=== PATIENT | male | born 1985 | race Caucasian/White ===

== ENCOUNTER 2020-05-20 06:50 | Emergency (ER) | payer SELFPAY ==
[2020-05-20 06:59] VITALS: BP 153/126; PULSE 96; RESP 18; TEMP 36.6; O2SAT 100; BMI 42.0
--- NOTE | 2020-05-20 07:14 | W.ED.ABDPA2 ---
HPI - Abdominal Pain General: Chief Complaint: Abdominal Pain Stated Complaint: ABD PAIN Time Seen by Provider: 05/20/20 07:00 History of Present Illness: HPI narrative: 35 yo male resents with right upper quadrant pain that began early this morning. He has had this intermittently in the past but has not lasted this long or been this intense before. He age of good he last night. He has had bilious vomiting all morning. This all began around 4 AM he relates the pain is being intense worse with a deep breath radiating around into his back he also has diarrhea with it he denies any hematochezia melena hematemesis or coffee-ground emesis. He states in the past it actually gets better when he vomits but it is not been improving this time. He denies any fever denies any flulike symptoms no cough or shortness of breath. MD elicited complaint: abdominal pain Onset (ago): hour(s) Pain Consistency: constant Location: RUQ Severity: severe Quality: cramping Radiation: RUQ Migration to: other (Back) Exacerbating factors: eating Relieving factors: nothing Associated Symptoms: Reports anorexia, bloating, change in bowel habits, change in stool character, GI cramping, diarrhea, nausea, poor appetite and vomiting; Denies chills, coffee ground emesis, constipation, dyspepsia, dysuria, excessive flatus, fever(s), heartburn, hematochezia, hematuria, hematemesis, fecal incontinence, loose stools, melena and syncope Review of Systems Const: Denies: fever(s) or chills ENMT: Denies: throat pain, ear or mastoid pain, nasal discharge or nasal congestion Card: Denies: syncope Resp: Denies: dyspnea, productive cough or non-productive cough GI: Reports: nausea, vomiting, diarrhea, bloating, GI cramping, change in bowel habits and change in stool character; Denies: hematemesis, coffee ground emesis, heartburn, constipation, excessive flatus, fecal incontinence, hematochezia or melena : Denies: dysuria or hematuria Skin/Breast: Denies: rash or pruritus [facility] ED PFSH: Surgical History (Updated 05/20/20 @ 07:46 by Cesar Del Angel DO) History of appendectomy Physical Exam Const: COMMON NORMALS: no acute distress GENERAL APPEARANCE: cooperative and comfortable ORIENTATION/CONSCIOUSNESS: Yes awake, Yes oriented to person, Yes oriented to place and Yes oriented to time HENMT: COMMON NORMALS: normocephalic, atraumatic and hearing grossly normal bilaterally HEAD & SCALP: normocephalic and atraumatic Neck/C-Spine: COMMON NORMALS: no JVD Resp: COMMON NORMALS: normal respiratory effort, No retractions, No use of accessory muscles and clear to auscultation bilaterally AUSCULTATION: clear to auscultation bilaterally Cardio: COMMON NORMALS: no JVD, regular rate, regular rhythm and No murmurs present (Cardio) RATE: regular rate RHYTHM: regular rhythm GI: COMMON NORMALS: Soft to palpation and No hepatosplenomegaly present AUSCULTATION: Yes normoactive bowel sounds PALPATION: Yes Soft to palpation, Yes Tenderness to palpation present (GI) (Positive Long sign) Details: RUQ, No Guarding due to palpation present (GI) and Yes No hepatosplenomegaly present Extremity: COMMON NORMALS: normal to inspection, capillary refill normal, no clubbing, cyanosis or edema, no calf tenderness and no pedal edema Neuro: SENSORIUM/ORIENTATION: Yes oriented to person, Yes oriented to place and Yes oriented to time Skin: COMMON NORMALS: no rashes or lesions noted GENERAL SKIN EXAM: no rashes or lesions noted Course Vital Signs: Vital signs: Vital Signs Temperature 97.9 F 05/20/20 06:59 Pulse Rate 78 05/20/20 11:39 Respiratory Rate 15 05/20/20 11:39 Blood Pressure 140/90 05/20/20 11:39 Pulse Oximetry 97 05/20/20 11:39 MDM - Abdominal Pain Lab Data: Labs: Lab Results 05/20/20 05/20/20 05/20/20 Range/Units 07:32 07:38 07:38 WBC 7.7 (4.0-10.0) 10^3/ uL RBC 5.28 (4.1-5.3) 10^6/u L Hgb 15.3 (11.7-16.6) g/dL Hct 46.4 (42.0-52.0) % MCV 87.9 (80-94) fL MCH 29.0 (28.0-34.0) pg MCHC 33.0 (30.0-36.0) g/dL RDW 12.9 (12.1-15.1) % Plt Count 254 (130-400) 10^3/c mm MPV 10.2 (7.4-10.4) fL Neut % (Auto) 64.2 % Lymph % (Auto) 24.2 % [place] % (Auto) 8.0 % Eos % (Auto) 2.6 % Baso % (Auto) 0.9 % Neut # (Auto) 4.97 (1.8-7.7) 10^3/u L Lymph # (Auto) 1.9 (0.8-4.8) 10^3/u L [place] # (Auto) 0.6 (0.2-0.9) 10^3/u L Eos # (Auto) 0.2 (0.0-0.8) 10^3/u L Baso # (Auto) 0.1 (0.0-0.1) 10^3/u L Nucleated RBC % (a uto) 0 % Nucleated RBCs # 0.0 /100WBC Sodium (136-145) mmol/L Potassium (3.5-5.1) mmol/L Chloride (98-107) mmol/L Carbon Dioxide (22-29) mmol/L Anion Gap (5-19) BUN (6-20) mg/dL Creatinine (0.7-1.2) mg/dL GFR Calculation (90-130) mL/min Glucose (65-115) mg/dL Calculated Osmolal ity (285-295) mOsm/k g Lactic Acid 1.0 (0.5-2.2) mmol/L Calcium (8.5-10.5) mg/dL Total Bilirubin (0.15-1.2) mg/dL AST (0-40) U/L ALT (0-41) U/L Alkaline Phosphata se (40-130) IU/L Total Protein (6.6-8.7) g/dL Albumin (3.5-5.2) g/dL Globulin (1.3-4.6) g/dL Lipase (13-60) U/L Urine Color Straw (Yellow) Urine Appearance Clear (CLEAR) Urine pH 5 (5-7) Ur Specific Gravit y 1.020 (1.005-1.030) Urine Protein Neg (Negative) Urine Glucose (UA) Norm (Normal) Urine Ketones Negative (Negative) Urine Blood Neg (Negative) Urine Nitrate Negative (Negative) Urine Bilirubin Neg (Negative) Urine Urobilinogen Norm (Negative) mg/dL Ur Leukocyte Toshia ase Negative (Negative) 05/20/20 Range/Units 07:38 WBC (4.0-10.0) 10^3/ uL RBC (4.1-5.3) 10^6/u L Hgb (11.7-16.6) g/dL Hct (42.0-52.0) % MCV (80-94) fL MCH (28.0-34.0) pg MCHC (30.0-36.0) g/dL RDW (12.1-15.1) % Plt Count (130-400) 10^3/c mm MPV (7.4-10.4) fL Neut % (Auto) % Lymph % (Auto) % [place] % (Auto) % Eos % (Auto) % Baso % (Auto) % Neut # (Auto) (1.8-7.7) 10^3/u L Lymph # (Auto) (0.8-4.8) 10^3/u L [place] # (Auto) (0.2-0.9) 10^3/u L Eos # (Auto) (0.0-0.8) 10^3/u L Baso # (Auto) (0.0-0.1) 10^3/u L Nucleated RBC % (a uto) % Nucleated RBCs # /100WBC Sodium 135 L (136-145) mmol/L Potassium 4.3 (3.5-5.1) mmol/L Chloride 100 (98-107) mmol/L Carbon Dioxide 27 (22-29) mmol/L Anion Gap 12.3 (5-19) BUN 18 (6-20) mg/dL Creatinine 0.7 (0.7-1.2) mg/dL GFR Calculation 129.9 (90-130) mL/min Glucose 106 (65-115) mg/dL Calculated Osmolal ity 282 L (285-295) mOsm/k g Lactic Acid (0.5-2.2) mmol/L Calcium 9.4 (8.5-10.5) mg/dL Total Bilirubin 0.2 (0.15-1.2) mg/dL AST 23 (0-40) U/L ALT 33 (0-41) U/L Alkaline Phosphata se 89 (40-130) IU/L Total Protein 7.6 (6.6-8.7) g/dL Albumin 4.6 (3.5-5.2) g/dL Globulin 3.0 (1.3-4.6) g/dL Lipase 24 (13-60) U/L Urine Color (Yellow) Urine Appearance (CLEAR) Urine pH (5-7) Ur Specific Gravit y (1.005-1.030) Urine Protein (Negative) Urine Glucose (UA) (Normal) Urine Ketones (Negative) Urine Blood (Negative) Urine Nitrate (Negative) Urine Bilirubin (Negative) Urine Urobilinogen (Negative) mg/dL Ur Leukocyte Toshia ase (Negative) Discharge Plan Discharge Clinical Impression: Cholelithiasis Condition: Stable Prescriptions: New hydrocodone-acetaminophen 5-325 mg tablet 1 tab PO Q6H PRN (Reason: pain) Qty: 20 RF: 0 Zofran 4 mg tablet 4 mg PO Q6H PRN (Reason: nausea and vomiting) Qty: 20 RF: 0 Discharge Orders: Discharge Order (Routine); Ordered 05/20/20 Ordered By: Cesar Del Angel Discharge Diet: Clear Liquid Patient Instructions: Cholelithiasis, Clear Liquid Diet (ED) Activity Restrictions/Additional Instructions: Case management will call to get an appointment with general surgery to discuss your gallbladder. Coding Level of Care Code ED Safety Deposit Clerk for Elizabeth Fwd Exam Comprehensive
--- NOTE | 2020-05-20 07:15 | CT_ITS ---
WS: [id number] CT ABDOMEN AND PELVIS WITH CONTRAST HISTORY: Abdominal pain. Prior appendectomy. TECHNIQUE: Imaging performed of the abdomen and pelvis with IV contrast. Single phase imaging of the abdomen. Coronal and sagittal reformats are submitted. All CT scans at [facility] use at least one of these dose optimization techniques: automated exposure control; mA and/or kV adjustment per patient size (includes targeted exams where dose is matched to clinical indication); or iterativ e reconstruction. IV CONTRAST: Omnipaque 300; 95 mL IV. Oral contrast: No DLP: 1979.01 mGy.cm COMPARISON: None available. Lower thorax: Mild dependent changes and a few groundglass subtle areas of attenuation at the lung ba ses. Heart is normal size. No hiatal hernia. Liver/biliary system: Liver is slightly enlarged. No bile duct dilatation. Gallbladder: Normally distended gallbladder. Mild hyperemia of the gallbladder wall without thickenin g. Suspicious for stone at the gallbladder neck. Pancreas: Normal. Spleen: Normal. Adrenal glands: Normal. Right kidney: Normal. Left kidney: Normal. Aorta: Normal. Lymphadenopathy: None. Free fluid: None. GI tract: Surgical clips along the ascending colon. There is no obstruction. The appendix has been rodríguez rgically removed. Abdominal wall: Unremarkable abdominal wall. No hernia. Pelvis: Mild enlargement and lobulation of the prostate. Urinary bladder is well distended. No free f luid or adenopathy. Inguinal canals are patent bilaterally containing fat only. Bones: Unremarkable. CT/CT abdomen pelvis w con* [id number] IMPRESSION: 1. Early changes of mild acute cholecystitis are suspected. Stone at the gallb ladder neck may be present. 2. No hydrops or gallbladder wall thickening. 3. Prior appendectomy.
--- NOTE | 2020-05-20 07:15 | XR_ITS ---
WS: [id number] Exam: XR chest 1V portable [id number] Date/Time of Exam: 05/20/2020 7:18 AM Reason For Exam: dyspnea/cough Findings: The lungs are clear and fully expanded. Costophrenic angles are sharp. No infiltrates. Bronchovascula r relief appears normal. Cardiac silhouette is unremarkable. Bony elements are intact. XR/XR chest 1V portable [id number] IMPRESSION: Unremarkable chest radiograph.
--- NOTE | 2020-05-20 07:15 | ECG_ITS ---
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 Measurements Intervals [place] Rate: 81 P: 34 MA: 146 QRS: 15 QRSD: 116 T: 34 QT: 341 QTc: 398 Interpretive Statements SINUS RHYTHM MODERATE INTRAVENTRICULAR CONDUCTION DELAY [110+ ms QRS DURATION] No previous ECG available for comparison Electronically Signed On 05-20-2020 18:23:56 [employer] RADIO OPERATOR by Guido Wong M.D. [id number]
--- NOTE | 2020-05-20 07:28 | US_ITS ---
WS: [id number] RIGHT UPPER QUADRANT ULTRASOUND HISTORY: Abdominal and RIGHT upper quadrant pain. COMPARISON: 05/20/2020 Liver: 17.5 cm in length. Moderately enlarged liver. No mass or bile duct dilatation. Gallbladder: Normal size gallbladder. Mild gallbladder wall thickening. Gallbladder wall measures 3.8 mm. No pericholecystic fluid. No stones are identified. CBD: 0.3 cm Pancreas: Poorly visualized pancreas. Right kidney: 12.2 cm in length. Normal size and echogenicity. No hydronephrosis or mass. Aorta and IVC: Unremarkable abdominal aorta and IVC. No ascites. US/US gall bladder [id number] IMPRESSION: 1. No cholelithiasis identified. 2. Mild diffuse gallbladder wall thickening without pericholecystic fluid. Ear ly changes of acalculous cholecystitis versus gallbladder wall thickening relat ed to hepatocellular disease. 3. Mild hepatomegaly.
[2020-05-20] MEDS: sodium chloride 0.9% 1,000 ML 999 ML IV (07:40)
[2020-05-20] MEDS: ondansetron 2 mg/ML SDV 2 mL 4 MG IVP (07:40)
[2020-05-20 07:46] LABS: Basophils # 0.1 10^3/uL (0.0-0.1); Basophils % 0.9 %; Eosinophils # 0.2 10^3/uL (0.0-0.8); Eosinophils % 2.6 %; Hematocrit 46.4 % (42.0-52.0); Hemoglobin 15.3 g/dL (11.7-16.6); Lymphocytes # 1.9 10^3/uL (0.8-4.8); Lymphocytes % 24.2 %; Mean Corpuscular Volume 87.9 fL (80-94); Mean Platelet Volume 10.2 fL (7.4-10.4); Monocytes # 0.6 10^3/uL (0.2-0.9); Neutrophils # 4.97 10^3/uL (1.8-7.7); Neutrophils % 64.2 %; Nucleated Red Blood Cells % 0 %; Platelet Count 254 10^3/cmm (130-400); Red Blood Count 5.28 10^6/uL (4.1-5.3); Red Cell Distribution Width 12.9 % (12.1-15.1); White Blood Count 7.7 10^3/uL (4.0-10.0)
[2020-05-20 07:52] LABS: Add Urine Microscopic? NO
[2020-05-20] MEDS: iohexol 300 mg/mL 100 mL Btl IV (07:54)
[2020-05-20 07:55] VITALS: RESP 15
[2020-05-20] MEDS: morphine 4 mg/mL SDV 1 mL IVP (07:55)
[2020-05-20 08:06] LABS: Alanine Aminotransferase 33 U/L (0-41); Albumin Level 4.6 g/dL (3.5-5.2); Alkaline Phosphatase 89 IU/L (40-130); Anion Gap 12.3 (5-19); Aspartate Amino Transferase 23 U/L (0-40); Blood Urea Nitrogen 18 mg/dL (6-20); Calcium 9.4 mg/dL (8.5-10.5); Carbon Dioxide 27 mmol/L (22-29); Chloride 100 mmol/L (98-107); Glomerular Filtration Rate 129.9 mL/min (90-130); Glucose 106 mg/dL (65-115); Lipase 24 U/L (13-60); Osmolality Calculated 282 mOsm/kg (285-295); Potassium 4.3 mmol/L (3.5-5.1); Sodium 135 mmol/L (136-145); Total Bilirubin 0.2 mg/dL (0.15-1.2); Total Protein 7.6 g/dL (6.6-8.7)
[2020-05-20 08:15] LABS: Urine Appearance Clear (CLEAR); Urine Color Straw (Yellow); pH Urine 5 (5-7)
[2020-05-20 08:16] LABS: Bilirubin Urine Neg (Negative); Blood Urine Neg (Negative); Glucose Urine UA Norm (Normal); Ketones Urine Negative (Negative); Leukocyte Esterase Urine Negative (Negative); Nitrate Urine Negative (Negative); Protein Urine Neg (Negative); Urobilinogen Urine Norm (Negative)
[2020-05-20 11:39] VITALS: BP 140/90; PULSE 78; RESP 15; O2SAT 97
--- NOTE | 2020-05-20 12:13 | DCPLANNER ---
television station manager was asked to schedule a follow up appointment for patient with general surgery. television station manager emailed Eleanor at [facility]. Patients information will be printed and reviewed. Clinic will call patient with appointment information.
--- NOTE | 2020-05-21 11:41 | DCPLANNER ---
Patient has a follow up appointment scheduled for Wednesday, May 22, 2020 at 3:[address] Alfaro. Clinic will call patient with appointment information.
--- NOTE | 2020-06-06 12:45 | DCPLANNER ---
Patient had a follow up appointment scheduled for 05.22.20 with general surgery - patient did attend appointment.
== END 2020-05-20 11:47 ==
PROVIDERS: Emergency Provider Family Medicine
DX: K80.20 Calculus of gallbladder without cholecystitis without obstruction (principal)
CPT/HCPCS: 12345; 71045; 74177; 76705; 80053; 81003; 83605; 83690; 85025; 93005; 96361; 96374; 96375; 99283; J2270; J2405; J7030; Q9967

== ENCOUNTER 2020-05-27 13:34 | Emergency (ER) | payer SELFPAY ==
[2020-05-27 13:55] VITALS: BP 128/78; PULSE 102; RESP 14; TEMP 36.7; O2SAT 98; BMI 41.3
[2020-05-27 15:10] LABS: Basophils # 0.1 10^3/uL (0.0-0.1); Basophils % 0.7 %; Eosinophils # 0.2 10^3/uL (0.0-0.8); Eosinophils % 2.1 %; Hematocrit 44.5 % (42.0-52.0); Hemoglobin 14.5 g/dL (11.7-16.6); Lymphocytes # 2.7 10^3/uL (0.8-4.8); Lymphocytes % 26.1 %; Mean Corpuscular HGB Conc 32.6 g/dL (30.0-36.0); Mean Corpuscular Hemoglobin 29.1 pg (28.0-34.0); Mean Corpuscular Volume 89.2 fL (80-94); Mean Platelet Volume 10.1 fL (7.4-10.4); Monocytes # 0.8 10^3/uL (0.2-0.9); Monocytes % 7.7 %; Neutrophils # 6.48 10^3/uL (1.8-7.7); Neutrophils % 62.2 %; Nucleated Red Blood Cells % 0 %; Platelet Count 227 10^3/cmm (130-400); Red Blood Count 4.99 10^6/uL (4.1-5.3); Red Cell Distribution Width 12.8 % (12.1-15.1); White Blood Count 10.4 10^3/uL (4.0-10.0)
[2020-05-27 15:29] LABS: Alanine Aminotransferase 30 U/L (0-41); Albumin Level 4.5 g/dL (3.5-5.2); Alkaline Phosphatase 91 IU/L (40-130); Aspartate Amino Transferase 19 U/L (0-40); Blood Urea Nitrogen 15 mg/dL (6-20); Calcium 8.9 mg/dL (8.5-10.5); Carbon Dioxide 31 mmol/L (22-29); Chloride 103 mmol/L (98-107); Globulin 2.7 g/dL (1.3-4.6); Glomerular Filtration Rate 129.9 mL/min (90-130); Glucose 86 mg/dL (65-115); Lipase 19 U/L (13-60); Osmolality Calculated 294 mOsm/kg (285-295); Sodium 142 mmol/L (136-145); Total Bilirubin 0.3 mg/dL (0.15-1.2); Total Protein 7.2 g/dL (6.6-8.7)
[2020-05-27 15:36] LABS: Anion Gap 12.5 (5-19); Potassium 4.5 mmol/L (3.5-5.1)
[2020-05-27] MEDS: sodium chloride 0.9% 1,000 ML 999 ML IV (15:46)
[2020-05-27 15:47] VITALS: BP 162/102; PULSE 83; RESP 16; O2SAT 98
[2020-05-27 15:48] VITALS: RESP 18; O2SAT 98
[2020-05-27] MEDS: ondansetron 2 mg/ML SDV 2 mL 4 MG IVP (15:48)
[2020-05-27] MEDS: morphine 4 mg/mL SDV 1 mL IVP (15:48)
--- NOTE | 2020-05-27 16:02 | W.ED.ABDPA2 ---
HPI - Abdominal Pain General: Chief Complaint: Abdominal Pain Stated Complaint: ABD PAIN Time Seen by Provider: 05/27/20 14:57 History of Present Illness: HPI narrative: 35-year-old male who was seen last week for right upper quadrant abdominal pain we worked him a look like he did have biliary colic and referred him over to surgery. He did see Dr. Cruz and he has a pending HIDA scan. Unfortunately he is not able to get that done yet it scheduled for June 06 in the meantime he relates that he has had 4 episodes prior to today of what sounds like biliary colic including at times some vomiting. However when I talked to him he has eaten some foods that have essentially been trigger foods including a Tina cheese steak sandwich and some spaghetti with sauce on it. After each of these episodes he has severe biliary colic-like cramping pain that resolves after a few hours he has had some episodes to the point where he caused vomiting and incapacitating right upper quadrant abdominal pain. He is not had any fever sweats or chills with this. MD elicited complaint: abdominal pain Pertinent past history: other (Biliary colic) Onset (ago): week(s) Location: RUQ Severity: severe Quality: cramping and stabbing Radiation: back Migration to: epigastric Exacerbating factors: eating ([place] foods, tomato based products) Relieving factors: nothing Associated Symptoms: Reports anorexia, bloating, GI cramping, nausea, poor appetite and vomiting; Denies change in bowel habits, change in stool character, chills, coffee ground emesis, constipation, diarrhea, dyspepsia, dysuria, excessive flatus, fever(s), heartburn, hematochezia, hematuria, hematemesis, fecal incontinence, loose stools, melena and syncope Review of Systems Const: Denies: fever(s) or chills ENMT: Denies: throat pain, ear or mastoid pain, nasal discharge or nasal congestion Card: Denies: syncope Resp: Denies: dyspnea, productive cough or non-productive cough GI: Reports: nausea, vomiting, bloating and GI cramping; Denies: hematemesis, coffee ground emesis, heartburn, diarrhea, constipation, excessive flatus, fecal incontinence, change in bowel habits, change in stool character, hematochezia or melena : Denies: dysuria or hematuria Skin/Breast: Denies: rash or pruritus PFSH ED PFSH: Surgical History History of appendectomy Physical Exam Const: COMMON NORMALS: no acute distress GENERAL APPEARANCE: cooperative and comfortable ORIENTATION/CONSCIOUSNESS: Yes awake, Yes oriented to person, Yes oriented to place and Yes oriented to time HENMT: COMMON NORMALS: normocephalic, atraumatic and hearing grossly normal bilaterally HEAD & SCALP: normocephalic and atraumatic Eye: COMMON NORMALS: Equal, round and reactive pupils present, EOMs intact bilaterally, conjunctivae normal and no scleral icterus CONJUNCTIVA: Yes conjunctivae normal PUPIL: Yes Equal, round and reactive pupils present Neck/C-Spine: COMMON NORMALS: full ROM, no lymphadenopathy, supple and no JVD Lymph: LYMPHATIC: no lymphadenopathy noted and no lymphedema noted Resp: COMMON NORMALS: normal respiratory effort, No retractions, No use of accessory muscles and clear to auscultation bilaterally AUSCULTATION: clear to auscultation bilaterally Cardio: COMMON NORMALS: no JVD, regular rate, regular rhythm and No murmurs present (Cardio) RATE: regular rate RHYTHM: regular rhythm GI: COMMON NORMALS: Soft to palpation and No hepatosplenomegaly present PALPATION: Yes Soft to palpation, Yes Tenderness to palpation present (GI) Details: RUQ, No Guarding due to palpation present (GI) and Yes No hepatosplenomegaly present Extremity: COMMON NORMALS: normal to inspection, capillary refill normal, no clubbing, cyanosis or edema, no calf tenderness and no pedal edema Neuro: SENSORIUM/ORIENTATION: Yes oriented to person, Yes oriented to place and Yes oriented to time Skin: COMMON NORMALS: no rashes or lesions noted GENERAL SKIN EXAM: no rashes or lesions noted Course Vital Signs: Vital signs: Vital Signs Temperature 98.1 F 05/27/20 13:55 Pulse Rate 83 05/27/20 15:47 Respiratory Rate 18 05/27/20 15:48 Blood Pressure 162/102 05/27/20 15:47 Pulse Oximetry 98 05/27/20 15:48 MDM - Abdominal Pain MDM Narrative: Medical decision making narrative: By history patient certainly seems to have biliary colic precipitated by dietary indiscretions. Discussed Dr. Alfaro ureter actually already seen the ureters came down and seen the patient discussed with him we are planning discharge with more pain medications and a strict diet to avoid further symptoms he will complete the outpatient work-up as scheduled anticipate scheduling elective cholecystectomy. Lab Data: Labs: Lab Results 05/27/20 05/27/20 Range/Units 14:57 14:57 WBC 10.4 H (4.0-10.0) 10^3/ uL RBC 4.99 (4.1-5.3) 10^6/u L Hgb 14.5 (11.7-16.6) g/dL Hct 44.5 (42.0-52.0) % MCV 89.2 (80-94) fL MCH 29.1 (28.0-34.0) pg MCHC 32.6 (30.0-36.0) g/dL RDW 12.8 (12.1-15.1) % Plt Count 227 (130-400) 10^3/c mm MPV 10.1 (7.4-10.4) fL Neut % (Auto) 62.2 % Lymph % (Auto) 26.1 % [place] % (Auto) 7.7 % Eos % (Auto) 2.1 % Baso % (Auto) 0.7 % Neut # (Auto) 6.48 (1.8-7.7) 10^3/u L Lymph # (Auto) 2.7 (0.8-4.8) 10^3/u L [place] # (Auto) 0.8 (0.2-0.9) 10^3/u L Eos # (Auto) 0.2 (0.0-0.8) 10^3/u L Baso # (Auto) 0.1 (0.0-0.1) 10^3/u L Nucleated RBC % (a uto) 0 % Nucleated RBCs # 0.0 /100WBC Sodium 142 (136-145) mmol/L Potassium 4.5 (3.5-5.1) mmol/L Chloride 103 (98-107) mmol/L Carbon Dioxide 31 H (22-29) mmol/L Anion Gap 12.5 (5-19) BUN 15 (6-20) mg/dL Creatinine 0.7 (0.7-1.2) mg/dL GFR Calculation 129.9 (90-130) mL/min Glucose 86 (65-115) mg/dL Calculated Osmolal ity 294 (285-295) mOsm/k g Calcium 8.9 (8.5-10.5) mg/dL Total Bilirubin 0.3 (0.15-1.2) mg/dL AST 19 (0-40) U/L ALT 30 (0-41) U/L Alkaline Phosphata se 91 (40-130) IU/L Total Protein 7.2 (6.6-8.7) g/dL Albumin 4.5 (3.5-5.2) g/dL Globulin 2.7 (1.3-4.6) g/dL Lipase 19 (13-60) U/L Discharge Plan Discharge Patient Disposition: Home Clinical Impression: Recurrent biliary colic Condition: Stable Prescriptions: New hydrocodone-acetaminophen 5-325 mg tablet 1 tab PO Q6H PRN (Reason: pain) Qty: 15 RF: 0 Zofran 4 mg tablet 4 mg PO Q6H PRN (Reason: nausea and vomiting) Qty: 10 RF: 0 No Action hydrocodone-acetaminophen 5-325 mg tablet 1 tab PO Q6H PRN (Reason: pain) Qty: 20 RF: 0 ondansetron HCl [Zofran] 4 mg tablet 4 mg PO Q6H PRN (Reason: nausea and vomiting) Qty: 20 RF: 0 Discharge Orders: Discharge Order (Routine); Ordered 05/27/20 Ordered By: Cesar Del Angel Discharge Diet: As Directed and Full LIquid Discharge Activity: Increase activity as tolerated Coding Level of Care Code ED Adjunct Latin Professor for Chg Fwd Exam Comprehensive
--- NOTE | 2020-05-27 16:08 | P.PN_ITS ---
Subjective Subjective: Interval history: I had belly pain This is a 35 years old gentleman was seen recently in my office for potential gallbladder disease and biliary colic. Patient was supposed to get a HIDA scan and plan for surgery thereafter in the form of laparoscopic cholecystectomy poss ible open and also to place the patient on liquid protein diet to downsize the volume of his liver which does demonstrate fatty liver. And I did educate the patient about refraining from any unhealthy diet, unfortunately last week and patient went and had [employer] sandwich and he started to have abdominal pain and he came to the ER today for further evaluation. I was contacted by Dr. Del Angel about the patient and I went to examine the patient myself in the ER room #15 and by the time I was there patient was already feeling better. He had his concern about the recurrent episodes that he is getting and the loss of days at work.. Vitals/I&O/Wt Last Vital Signs Temp 98.1 F 05/27/20 13:55 Pulse 83 05/27/20 15:47 Resp 18 05/27/20 15:48 BP 162/102 05/27/20 15:47 Pulse Ox 98 05/27/20 15:48 Weight last 48 hrs Weight 280 lb Physical Exam Narrative: EXAM NARRATIVE: Patient is conscious alert oriented X3 BMI 41.3 Head and neck examination PERRLA no masses no cervical lymphadenopathy no jaundice Abdomen nontender nondistended soft no organomegaly guarding or rigidity/no signs of peritonitis Extremities no cyanosis no clubbing no edema Data : 05/27/20 14:57 05/27/20 14:57 A&P Assessment and plan (1) Recurrent biliary colic: For further evaluating the patient and obtaining history and physical e xamination reviewing the chart in depth. I did explain for the patient about the importance from refraining from unhealthy diet and will try to get the HIDA scan this week if not we will plan to proceed with laparoscopic cholecystectomy possible open yet I did educate the patient about the importance of having him on liquid protein diet for a week to downsize the volume of the liver to facilitate his surgery. I do not see an acute indication at this point for intervention with particularly bigger liver that does increase the chance of conversion to open and that certainly would put the patient at more loss of work days. 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 We will continue coordinating with patient's PCP and Dr. Del Angel I did contact my office to schedule the patient for surgery this coming week Assurance and education All questions have been answered and all concerns have been addressed to patient's satisfaction. Status: Acute Attestations 2 Medical Necessity Statement*: Clinical encounter in the ER Time Spent in Patient Care: 16 - 35 minutes (>than 50% of time spent in counselling and/or direct pt care on unit) . Coding Level of Care Code Acute Fire Equipment Inspector Helper for Elizabeth Fwd Diagnoses Recurrent biliary colic K80.50
[2020-05-27 17:04] VITALS: BP 160/105; PULSE 93; RESP 20; O2SAT 97
[2020-05-27 17:22] LABS: Add Urine Microscopic? NO
[2020-05-27 17:45] LABS: Bilirubin Urine Neg (Negative); Blood Urine Neg (Negative); Glucose Urine UA Norm (Normal); Ketones Urine Negative (Negative); Leukocyte Esterase Urine Negative (Negative); Nitrate Urine Negative (Negative); Protein Urine Neg (Negative); Specific Gravity, Urine 1.015 (1.005-1.030); Urine Appearance Clear (CLEAR); Urine Color Yellow (Yellow); Urobilinogen Urine Norm (Negative); pH Urine 7 (5-7)
== END 2020-05-27 17:06 | disposition home or self-care (01) ==
PROVIDERS: Emergency Medicine; Emergency Provider Family Medicine
DX: K80.50 Calculus of bile duct without cholangitis or cholecystitis without obstruction (principal)
CPT/HCPCS: 12345; 80053; 81003; 83690; 85025; 96361; 96374; 96375; 99282; 99283; J2270; J2405; J7030

== ENCOUNTER 2020-05-29 07:36 | Outpatient (CLI) | payer SELFPAY ==
--- NOTE | 2020-05-29 08:00 | NM_ITS ---
WS: [id number] NUCLEAR MEDICINE HIDA SCAN WITH GALLBLADDER EJECTION FRACTION HISTORY: K80.20 - Calculus of gallbladder without cholecystitis without obstruction COMPARISON: 05/20/2020 TECHNIQUE: The patient was intravenously injected with 7.3 mCi of TC99m Mebrofenin. Immediate imaging over the right upper quadrant was followed by 5 minute image and additional images for a total of 60 minutes. Normal uptake of radiotracer throughout the liver. Activity identified in the gallbladder at 10 minutes and minimally well distended by 60 minutes. Activity in the proximal small bowel was seen by 20 minutes. Good washout of the radiotracer from the liver by 60 minutes. The patient then drank 8 ounces of Ensure Plus. Ejection fraction at 60 minutes was 40%. Normal GB ej ection fraction is 35-75%. Post fatty meal symptoms: None. NM/NM hepatobiliary w phar* [id number] IMPRESSION: 1. Normal HIDA scan. 2. Low normal gallbladder ejection fraction. The gallbladder only mild minimal ly distends with radionuclide. Favor chronic cholecystitis.
== END 2020-05-29 07:37 | disposition home or self-care (01) ==
PROVIDERS: Visit Provider Surgery
DX: K80.20 Calculus of gallbladder without cholecystitis without obstruction (principal); R10.9 Unspecified abdominal pain
CPT/HCPCS: 78227; A9537

== ENCOUNTER 2020-07-19 00:06 | Emergency (ER) | payer SELFPAY ==
[2020-07-19 00:08] VITALS: BP 163/122; PULSE 106; RESP 24; TEMP 36.6; O2SAT 96; BMI 47.0
--- NOTE | 2020-07-19 00:17 | US_ITS ---
WS: [id number] ULTRASOUND ABDOMEN LIMITED CLINICAL INFORMATION: RUQ pain COMPARISON: None. FINDINGS: Liver Size: Normal. Craniocaudal length: 15.1 cm. Echogenicity: Normal. Surface nodularity: None. Mass (size and location): None. Bile ducts Intrahepatic ducts: Normal. Common bile duct diameter: 0.5 cm. Gallbladder Gallstone in the neck of the gallbladder measuring 17 mm Gallstones: Present Gallbladder sludge: None. Gallbladder wall thickening: None. Pericholecystic fluid: None. Sonographic Long sign: Absent. Pancreas Normal as visualized. Right kidney: Normal. Hydronephrosis: None. Size: 11.2 cm x 5.8 cm x 5.9 cm. Abdominal aorta and IVC Visualized portions are normal. Ascites: None. US/US gall bladder [id number] IMPRESSION: 1. Normal liver. 2. Gallstone in the neck of the gallbladder measuring 17 mm. No gallbladder wa ll thickening or pericholecystic fluid. Normal common bile duct. 3. No hydronephrosis in right kidney.
--- NOTE | 2020-07-19 00:19 | W.ED.ABDPA2 ---
HPI - Abdominal Pain General: Chief Complaint: Abdominal Pain Stated Complaint: severe upper abd. pain Time Seen by Provider: 07/19/20 00:16 History of Present Illness: HPI narrative: Patient is a 35-year-old male comes to the ED with abdominal pain and nausea. Patient has a history of biliary colic and is scheduled to have a cholecystectomy on July 23. He says today and around 8 PM he had a glass of milk and his right upper quadrant abdominal pain started and got more more intense over the past couple hours. He rates his pain a 10 out of 10. He says he has nausea but has not vomited. Denies fever, chills, chest pain, bladder or bowel symptoms. Associated Symptoms: Reports nausea; Denies chills, constipation, diarrhea, dysuria, fever(s), hematochezia, hematuria and vomiting Review of Systems Const: Denies: fever(s), chills or fatigue Eyes: Denies: change in vision or eye discomfort ENMT: Denies: throat pain, odynophagia, nasal discharge or nasal congestion Card: Denies: chest pain, palpitations, edema, swelling of feet/ankles, dyspnea on exertion or orthopnea Resp: Denies: dyspnea, productive cough or non-productive cough GI: Reports: abdominal pain (RUQ) and nausea; Denies: vomiting, diarrhea, constipation or hematochezia : Denies: flank pain, difficulty urinating, dysuria or hematuria Musc: Denies: neck pain, back pain or extremity swelling Skin/Breast: Denies: rash or new lesions Neuro: Denies: headache(s), numbness in extremities or weakness in extremities PFS ED PFSH: Surgical History History of appendectomy Physical Exam Const: COMMON NORMALS: patient oriented x3 and alert GENERAL APPEARANCE: cooperative and in distress (Patient appears in pain and is crying.) NUTRITIONAL APPEARANCE: obese HENMT: COMMON NORMALS: normocephalic HEAD & SCALP: normocephalic MOUTH: Normal oral and palatal mucosa present THROAT: posterior oropharynx normal and uvula midline Eye: COMMON NORMALS: Equal, round and reactive pupils present PUPIL: Yes Equal, round and reactive pupils present Neck/C-Spine: COMMON NORMALS: supple GENERAL: Yes normal visual inspection Resp: COMMON NORMALS: normal respiratory effort, No retractions, No use of accessory muscles and clear to auscultation bilaterally EFFORT & INSPECTION: Yes able to speak in complete sentences and Yes tachypneic AUSCULTATION: clear to auscultation bilaterally Cardio: COMMON NORMALS: regular rhythm, S1 normal heart sound present, S2 normal heart sound present, No gallops present (Cardio), No clicks present (Cardio), No murmurs present (Cardio) and Peripheral pulses 2+ throughout RATE: tachycardic (105 bpm) RHYTHM: regular rhythm HEART SOUNDS: S1 normal heart sound present and S2 normal heart sound present PERIPHERAL PULSES: Peripheral pulses 2+ throughout GI: COMMON NORMALS: Normal to inspection, nondistended, normoactive bowel sounds present, Soft to palpation and no masses INSPECTION: Yes central obesity PALPATION: Yes Soft to palpation and Yes Tenderness to palpation present (GI) Details: RUQ (Moderate to severe tenderness. Positive Long sign) : COMMON NORMALS: Yes no CVA tenderness BLADDER/KIDNEY EXAM: Yes no CVA tenderness Back/Pelvis: COMMON NORMALS: no CVA tenderness Extremity: COMMON NORMALS: normal to inspection and no pedal edema Neuro: COMMON NORMALS: patient oriented x3 SENSORIUM/ORIENTATION: Yes alert GAIT: Yes Normal gait present Skin: GENERAL SKIN EXAM: dry skin Course Reevaluation(s): Reevaluation #1: After IV morphine and then a dose of Dilaudid patient's pain was finally able to get under control. He now rates his pain below a 3 out of 10. Time: 02:40 Vital Signs: Vital signs: Vital Signs Temperature 97.8 F 07/19/20 00:08 Pulse Rate 67 07/19/20 03:08 Respiratory Rate 18 07/19/20 03:08 Blood Pressure 129/78 07/19/20 03:08 Pulse Oximetry 98 07/19/20 03:08 MDM - Abdominal Pain MDM Narrative: Medical decision making narrative: Patient is a 35-year-old male comes to the ED with acute biliary colic pain. Patient has had these symptoms previously and has been seen here in the ED multiple times in the last 2 months for it. He has a scheduled appointment to get his gallbladder removed on July [address] Jones. Patient had right upper quadrant tenderness upon exam. He was crying in pain during history and physical exam. white blood cell count 10.6 and the rest of CBC and CMP and lipase were unremarkable. Lactic 1.4. Ultrasound gallbladder showed a 2 cm stone in the neck of the gallbladder but gallbladder wall was normal and common bile duct normal. Patient's pain and nausea was well controlled with IV pain meds and Zofran. Vital signs once pain was controlled 129/78, pulse 67, respirations 18, temp 97.8 and O2 sat 98% on room air. He was discharged home with prescription for Reglan and Lomax 7.5/325 tablets. He was instructed on having a clear liquid diet then slowly advancing as tolerated. Follow-up with surgeon at scheduled appointment on July 23 to get gallbladder removed. Return to ED precautions given. Patient understood agree with plan. Lab Data: Attestation: I reviewed the patient's lab results. Labs: Lab Results 07/19/20 07/19/20 07/19/20 Range/Units 00:30 00:30 00:30 WBC 10.6 H (4.0-10.0) 10^3/ uL RBC 5.34 H (4.1-5.3) 10^6/u L Hgb 15.5 (11.7-16.6) g/dL Hct 47.0 (42.0-52.0) % MCV 88.0 (80-94) fL MCH 29.0 (28.0-34.0) pg MCHC 33.0 (30.0-36.0) g/dL RDW 13.0 (12.1-15.1) % Plt Count 299 (130-400) 10^3/c mm MPV 10.5 H (7.4-10.4) fL Neut % (Auto) 50.5 % Lymph % (Auto) 38.8 % Frontier % (Auto) 7.4 % Eos % (Auto) 2.3 % Baso % (Auto) 0.8 % Neut # (Auto) 5.36 (1.8-7.7) 10^3/u L Lymph # (Auto) 4.1 (0.8-4.8) 10^3/u L Frontier # (Auto) 0.8 (0.2-0.9) 10^3/u L Eos # (Auto) 0.2 (0.0-0.8) 10^3/u L Baso # (Auto) 0.1 (0.0-0.1) 10^3/u L Nucleated RBC % (a uto) 0 % Nucleated RBCs # 0.0 /100WBC Sodium 137 (136-145) mmol/L Potassium 4.1 (3.5-5.1) mmol/L Chloride 102 (98-107) mmol/L Carbon Dioxide 24 (22-29) mmol/L Anion Gap 15.1 (5-19) BUN 23 H (6-20) mg/dL Creatinine 0.9 (0.7-1.2) mg/dL GFR Calculation 97.2 (90-130) mL/min Glucose 113 (65-115) mg/dL Calculated Osmolal ity 288 (285-295) mOsm/k g Lactic Acid 1.4 (0.5-2.2) mmol/L Calcium 9.7 (8.5-10.5) mg/dL Total Bilirubin 0.2 (0.15-1.2) mg/dL AST 15 (0-40) U/L ALT 22 (0-41) U/L Alkaline Phosphata se 87 (40-130) IU/L Total Protein 7.7 (6.6-8.7) g/dL Albumin 4.7 (3.5-5.2) g/dL Globulin 3.0 (1.3-4.6) g/dL Lipase 22 (13-60) U/L Imaging Data ^: US: Attestation: I personally reviewed and interpreted this imaging study as follows: Radiologist's impression: Ultrasound gallbladder prelim report?2 cm stone in neck of gallbladder. Common bile duct normal. Gallbladder wall normal. Discharge Plan Discharge Patient Disposition: Home Clinical Impression: Recurrent biliary colic Gallstone Qualifiers: Cholecystitis presence: without cholecystitis Biliary obstruction: without biliary obstruction Qualified Code(s): K80.20 - Calculus of gallbladder without cholecystitis without obstruction Condition: Stable Prescriptions: New Reglan 10 mg tablet 10 mg PO Q6H PRN (Reason: nausea and vomiting) Qty: 15 RF: 0 No Action hydrocodone-acetaminophen 5-325 mg tablet 1 tab PO Q6H PRN (Reason: pain) Qty: 20 RF: 0 ondansetron HCl [Zofran] 4 mg tablet 4 mg PO Q6H PRN (Reason: nausea and vomiting) Qty: 20 RF: 0 hydrocodone-acetaminophen 5-325 mg tablet 1 tab PO Q6H PRN (Reason: pain) Qty: 15 RF: 0 Zofran 4 mg tablet 4 mg PO Q6H PRN (Reason: nausea and vomiting) Qty: 10 RF: 0 Discharge Orders: Discharge ED (Routine); Ordered 07/19/20 Ordered By: Saman Avila Discharge Diet: Advance as tolerated and Clear Liquid Discharge Activity: Increase activity as tolerated Patient Instructions: Biliary Colic (ED) Activity Restrictions/Additional Instructions: Follow-up with the general surgeon at your scheduled appointment on July 23. Clear liquid diet then slowly advance as tolerated. Avoid any fatty or greasy foods. Take medications as prescribed. Return to the ER or your medical provider if condition worsens. Please read and understand discharge instructions. If any questions, please ask. 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
[2020-07-19 00:26] VITALS: RESP 24; O2SAT 95
[2020-07-19] MEDS: morphine 4 mg/mL SDV 1 mL IVP ×2 (00:26→02:13)
[2020-07-19] MEDS: ondansetron 2 mg/ML SDV 2 mL 4 MG IVP (00:26)
[2020-07-19 00:53] LABS: Basophils # 0.1 10^3/uL (0.0-0.1); Basophils % 0.8 %; Eosinophils # 0.2 10^3/uL (0.0-0.8); Eosinophils % 2.3 %; Hemoglobin 15.5 g/dL (11.7-16.6); Lymphocytes # 4.1 10^3/uL (0.8-4.8); Lymphocytes % 38.8 %; Mean Platelet Volume 10.5 fL (7.4-10.4); Monocytes # 0.8 10^3/uL (0.2-0.9); Monocytes % 7.4 %; Neutrophils # 5.36 10^3/uL (1.8-7.7); Neutrophils % 50.5 %; Nucleated Red Blood Cells % 0 %; Platelet Count 299 10^3/cmm (130-400); Red Blood Count 5.34 10^6/uL (4.1-5.3); White Blood Count 10.6 10^3/uL (4.0-10.0)
[2020-07-19 01:00] LABS: Alanine Aminotransferase 22 U/L (0-41); Albumin Level 4.7 g/dL (3.5-5.2); Alkaline Phosphatase 87 IU/L (40-130); Aspartate Amino Transferase 15 U/L (0-40); Blood Urea Nitrogen 23 mg/dL (6-20); Calcium 9.7 mg/dL (8.5-10.5); Carbon Dioxide 24 mmol/L (22-29); Chloride 102 mmol/L (98-107); Glomerular Filtration Rate 97.2 mL/min (90-130); Glucose 113 mg/dL (65-115); Lactic Sepsis W/Reflex 1.4 mmol/L (0.5-2.2); Lipase 22 U/L (13-60); Osmolality Calculated 288 mOsm/kg (285-295); Sodium 137 mmol/L (136-145); Total Bilirubin 0.2 mg/dL (0.15-1.2); Total Protein 7.7 g/dL (6.6-8.7)
[2020-07-19 01:01] LABS: Anion Gap 15.1 (5-19); Potassium 4.1 mmol/L (3.5-5.1)
[2020-07-19 01:15] VITALS: BP 131/86; PULSE 77; RESP 22; O2SAT 97
[2020-07-19] MEDS: HYDROmorphone 1 mg/mL INJ 1 mL IVP (01:16)
[2020-07-19 01:51] VITALS: BP 132/84; PULSE 72; RESP 17; O2SAT 96
[2020-07-19] MEDS: sodium chloride 0.9% 1,000 ML 999 ML IV (01:53)
[2020-07-19 02:12] VITALS: BP 134/81; PULSE 78; RESP 18; O2SAT 93
[2020-07-19 03:08] VITALS: BP 129/78; PULSE 67; RESP 18; O2SAT 98
== END 2020-07-19 03:08 | disposition home or self-care (01) ==
PROVIDERS: Emergency Provider Physician Assistant
DX: K80.70 Calculus of gallbladder and bile duct without cholecystitis without obstruction (principal)
CPT/HCPCS: 12345; 76705; 80053; 83605; 83690; 85025; 87040; 96361; 96374; 96375; 96376; 99283; J1170; J2270; J2405; J7030

== ENCOUNTER 2020-07-22 21:16 | Emergency (ER) | payer SELFPAY ==
[2020-07-22 21:29] VITALS: BP 159/106; PULSE 98; RESP 24; TEMP 36.9; O2SAT 99; BMI 47.0
--- NOTE | 2020-07-22 21:32 | ECG_ITS ---
[facility] Test Date: 2020-07-22 Pat Name: Noah Kidd Department: Room: Gender: Male Housing Liaison: : 1985 Requested By: Jennifer Leiva Order Number: [id number] Jozef MD: Gail Burnette M.D. 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 [id number]
[2020-07-22 21:38] VITALS: BP 148/94; PULSE 94; RESP 20; O2SAT 95
--- NOTE | 2020-07-22 21:39 | ED_ITS ---
HPI - Abdominal Pain General: Chief Complaint: Abdominal Pain Stated Complaint: severe uppder abdominal pain/suspects gallbladder Time Seen by Provider: 07/22/20 21:31 Source: patient and family (spouse) Mode of arrival: ambulatory Limitations: no limitations History of Present Illness: HPI narrative: 35-year-old male patient presents to the emergency department with 1 hour onset of right upper quadrant pain. He has known gallbladder disease; he reports ate a turkey sandwich with pain to the right upper quadrant that was almost immediate. He reports similar symptoms in the past with appropriate follow-up with Dr. Alfaro for known gallbladder issue. He denies fever chills. He reports nausea with diarrhea. He has not vomited. Right upper quadrant ultrasound completed 07/19/2020 with normal liver findings; gallstone in the neck of the gallbladder measuring 17 mm. HIDA scan completed May 29, 2020 with normal HIDA scan with low normal gallbladder ejection fra ction. He reports previous admission to the hospital in [place] on 07/16/2020; he was seen in the emergency department on 07/19/2020 for gallbladder issues, right upper quadrant pain. He reports was scheduled for surgery tomorrow with Dr. Alfaro but states since stone is in the neck of the gallbladder, surgery was canceled. He states was instructed to clear liquid diet by Dr Monroe today. He reports no longer able to take the pain or the continued distress the gallbladder issue is causing him. 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 MD elicited complaint: abdominal pain Onset (ago): hour(s) (1) Pain Consistency: constant Location: RUQ Severity: similar to previous episodes Quality: cramping, aching and sharp Radiation: RUQ Exacerbating factors: eating Relieving factors: medication Associated Symptoms: Reports bloating, change in stool character, diarrhea and nausea; Denies chills, constipation, GI cramping, dysuria, excessive flatus, fever(s), heartburn and vomiting Treatments prior to arrival: other (nothing) Review of Systems General: Reports: 10 or more systems reviewed and unremarkable except in HPI and below Const: Denies: fever(s), chills, body aches, fatigue, malaise or diaphoresis Eyes: Denies: blurry vision or eye redness ENMT: Denies: throat pain, dental pain or disequilibrium Card: Denies: chest pain, palpitations or irregular heart rhythm Resp: Denies: dyspnea, productive cough, non-productive cough or wheezing GI: Reports: abdominal pain, nausea, diarrhea, bloating and change in stool character; Denies: vomiting, heartburn, constipation, GI cramping or excessive flatus : Denies: dysuria or urinary urgency Musc: Denies: neck pain, back pain, muscle cramps or muscle weakness Skin/Breast: Denies: rash or pruritus Neuro: Denies: headache(s), weakness in extremities or behavioral changes Psych: Denies: anxiety, depression or change in appetite Jovanny/Lymph: Denies: easy bruising PFSH ED PFSH: Surgical History History of appendectomy Social History (Updated 07/22/20 @ 21:48 by ANJALI Carrillo) Caregiver/support person: Yes Lives independently: Yes Household members: spouse Marital status: Physical Exam Const: COMMON NORMALS: no acute distress, patient oriented x3, healthy appearing, alert and well nourished EXAM LIMITATIONS: no altered mental status, no behavioral limitations and no physical limitations GENERAL APPEARANCE: cooperative, well kempt, well developed, anxious, diaphoretic (due to pain) and well hydrated; not comfortable, not combative and not ill appearing NUTRITIONAL APPEARANCE: obese ORIENTATION/CONSCIOUSNESS: Yes awake, Yes oriented to person, Yes oriented to place and Yes oriented to time HENMT: COMMON NORMALS: normocephalic, atraumatic, EAC's normal, Normal external nose present and moist oral mucous membranes HEAD & SCALP: normal to inspection, normocephalic and atraumatic FACE & SINUS: normal facial exam and face symmetric; no ecchymosis, no erythema and no edema NOSE: Normal external nose present and Normal nares present EXTERNAL AUDITORY CANAL: EAC's normal MOUTH: Normal oral and palatal mucosa present, lip normal and tongue normal THROAT: posterior oropharynx normal and uvula midline Eye: COMMON NORMALS: Equal, round and reactive pupils present and EOMs intact bilaterally GENERAL EYE: appearance normal, both eyes and all related structures ALIGNMENT: Yes alignment normal EYELID: eyelids normal SCLERA: sclerae normal PUPIL: Yes Equal, round and reactive pupils present Neck/C-Spine: COMMON NORMALS: full ROM, no lymphadenopathy and supple GENERAL: Yes normal visual inspection and Yes trachea midline CERVICAL SPINE: Yes cervical ROM normal Lymph: LYMPHATIC: no lymphadenopathy noted Chest: COMMONS NORMALS: normal inspection of the chest and normal palpation of entire chest wall Resp: COMMON NORMALS: normal respiratory effort, No retractions, No use of accessory muscles and clear to auscultation bilaterally EFFORT & INSPECTION: Yes able to speak in complete sentences, No labored and No audible wheezes A USCULTATION: clear to auscultation bilaterally Cardio: COMMON NORMALS: regular rate, regular rhythm, S1 normal heart sound present, S2 normal heart sound present and Peripheral pulses 2+ throughout RATE: regular rate RHYTHM: regular rhythm HEART SOUNDS: S1 normal heart sound present and S2 normal heart sound present PERIPHERAL PULSES: Peripheral pulses 2+ throughout GI: COMMON NORMALS: Normal to inspection, nondistended, normoactive bowel sounds present and Soft to palpation INSPECTION: Yes normal to inspection, No abdominal wall ecchymosis, No abdominal distension, Yes central obesity, No visible herniation and No Fluid wave present PALPATION: Yes Soft to palpation, Yes Tenderness to palpation present (GI) Details: RUQ, No Hernia present and No Rebound tenderness present PERCUSSION: no fluid wave : COMMON NORMALS: Yes no CVA tenderness BLADDER/KIDNEY EXAM: Yes no CVA tenderness Back/Pelvis: COMMON NORMALS: no CVA tenderness and thoracic and lumbar spine normal to inspection Extremity: COMMON NORMALS: normal to inspection and capillary refill normal Neuro: COMMON NORMALS: patient oriented x3 and no focal motor deficits SENSORIUM/ORIENTATION: Yes alert, Yes oriented to person, Yes oriented to place and Yes oriented to time SPEECH: speech normal GAIT: Yes Normal gait present MOTOR EXAM: 5/5 motor strength present throughout Right pupil size (mm): 4 Left pupil size (mm): 4 Psych: COMMON NORMALS: mental status grossly normal, Normal thought process present, cooperative, normal affect, speech normal and activity/motor behavior normal APPEARANCE: Yes grossly normal and Yes well kempt ACTIVITY/MOTOR BEHAVIOR: Yes appropriate eye contact SPEECH: Yes normal speech THOUGHT PROCESS: Normal thought process present Skin: COMMON NORMALS: no rashes or lesions noted and turgor normal GENERAL SKIN EXAM: no rashes or lesions noted and turgor normal Course Vital Signs: Vital signs: Vital Signs Temperature 98.4 F 07/22/20 21:29 Pulse Rate 88 07/22/20 22:26 Respiratory Rate 16 07/22/20 22:26 Blood Pressure 131/112 07/22/20 22:26 Pulse Oximetry 95 07/22/20 22:26 MDM - Abdominal Pain MDM Narrative: Medical decision making narrative: 35-year-old male patient presents to the emergency department with 1 hour onset of right upper quadrant pain, known cholelithiasis according to ultrasound completed 07/19/2020. He has several ED visits including one [id number] due to gallbladder pain. He was scheduled for gallbladder surgery tomorrow but states surgery was changed due to need for full liquid diet. He reports onset of right upper quadrant pain after eating turkey sandwich tonight; white count is normal, liver enzymes normal, pain was controlled with use of morphine and Dilaudid, Zofran administered for nausea which resolved; who was advised to follow-up with Dr. Conner tomorrow morning for further recommendation. 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 He reports still has prescriptions at home. He was advised to fill prescriptions as I have given him work excuse due to pain. Is advised to take Tylenol for pain, to avoid NSAIDs as surgery could be needed sooner. He was advised to return to the emergency department if he developed worsening symptoms. Differential Diagnosis: Differential diagnosis abdominal pain: Likely abdominal pain, calculus of kidney, constipation and small bowel obstruction Medical Records: Attestation: I reviewed the patient's medical records. Lab Data: Attestation: I reviewed the patient's lab results. Labs: Lab Results 07/22/20 07/22/20 07/22/20 Range/Units 22:00 22:00 22:52 WBC 9.3 (4.0-10.0) 10^3/ uL RBC 5.26 (4.1-5.3) 10^6/u L Hgb 15.2 (11.7-16.6) g/dL Hct 45.6 (42.0-52.0) % MCV 86.7 (80-94) fL MCH 28.9 (28.0-34.0) pg MCHC 33.3 (30.0-36.0) g/dL RDW 13.1 (12.1-15.1) % Plt Count 275 (130-400) 10^3/c mm MPV 10.3 (7.4-10.4) fL Neut % (Auto) 56.7 % Lymph % (Auto) 32.7 % Banks % (Auto) 6.7 % Eos % (Auto) 2.9 % Baso % (Auto) 0.8 % Neut # (Auto) 5.29 (1.8-7.7) 10^3/u L Lymph # (Auto) 3.1 (0.8-4.8) 10^3/u L Banks # (Auto) 0.6 (0.2-0.9) 10^3/u L Eos # (Auto) 0.3 (0.0-0.8) 10^3/u L Baso # (Auto) 0.1 (0.0-0.1) 10^3/u L Nucleated RBC % (a uto) 0 % Nucleated RBCs # 0.0 /100WBC Sodium 136 (136-145) mmol/L Potassium 3.9 (3.5-5.1) mmol/L Chloride 102 (98-107) mmol/L Carbon Dioxide 23 (22-29) mmol/L Anion Gap 14.9 (5-19) BUN 20 (6-20) mg/dL Creatinine 0.8 (0.7-1.2) mg/dL GFR Calculation 111.3 (90-130) mL/min Glucose 115 (65-115) mg/dL Calculated Osmolal ity 286 (285-295) mOsm/k g Calcium 8.8 (8.5-10.5) mg/dL Total Bilirubin 0.2 (0.15-1.2) mg/dL AST 15 (0-40) U/L ALT 21 (0-41) U/L Alkaline Phosphata se 82 (40-130) IU/L Total Protein 7.4 (6.6-8.7) g/dL Albumin 4.1 (3.5-5.2) g/dL Globulin 3.3 (1.3-4.6) g/dL Lipase 28 (13-60) U/L Urine Color Yellow (Yellow) Urine Appearance Clear (CLEAR) Urine pH 5.0 (5-7) Ur Specific Gravit y 1.025 (1.005-1.030) Urine Protein Neg (Negative) Urine Glucose (UA) Norm (Normal) Urine Ketones Negative (Negative) Urine Blood Neg (Negative) Urine Nitrate Negative (Negative) Urine Bilirubin Neg (Negative) Urine Urobilinogen Norm (Negative) mg/dL Ur Leukocyte Toshia ase Negative (Negative) Imaging Data ^: US: Attestation: I personally reviewed and interpreted this imaging study as follows: My impression: No acute changes from gallbladder ultrasound completed 05/19/2021 -2 cm stone remains in the neck of the gallbladder, no gallbladder wall thickening or pericholecystic fluid present, liver normal. EKG Data ^: EKG 1: EKG interpretation date: 07/22/20 EKG interpretation time: 21:47 Prior EKG tracings: available for review Other EKG comments: Sinus rhythm with sinus arrhythmia, ventricular rate 88; moderate intraventricular conduction delay, borderline ECG, no significant changes since EKG completed 05/20/2020 Discharge Plan Discharge Patient Disposition: Home Clinical Impression: Cholelithiasis Qualifiers: Cholelithiasis location: gallbladder Cholecystitis presence: without cholecystitis Biliary obstruction: without biliary obstruction Qualified Code(s): K80.20 - Calculus of gallbladder without cholecystitis without obstruction Abdominal pain Qualifiers: Abdominal location: right upper quadrant Qualified Code(s): R10.11 - Right upper quadrant pain Condition: Stable Prescriptions: No Action hydrocodone-acetaminophen 5-325 mg tablet 1 tab PO Q6H PRN (Reason: pain) Qty: 20 RF: 0 ondansetron HCl [Zofran] 4 mg tablet 4 mg PO Q6H PRN (Reason: nausea and vomiting) Qty: 20 RF: 0 hydrocodone-acetaminophen 5-325 mg tablet 1 tab PO Q6H PRN (Reason: pain) Qty: 15 RF: 0 Zofran 4 mg tablet 4 mg PO Q6H PRN (Reason: nausea and vomiting) Qty: 10 RF: 0 Reglan 10 mg tablet 10 mg PO Q6H PRN (Reason: nausea and vomiting) Qty: 15 RF: 0 Discharge Orders: Discharge ED (Routine); Ordered 07/22/20 Ordered By: Jennifer Vargas Discharge Diet: Full LIquid Discharge Activity: Limit activity as instructed Patient Instructions: Full Liquid Diet, Cholelithiasis, Abdominal Pain (ED) Activity Restrictions/Additional Instructions: fill prescription of hydrocodone and take as directed as needed for pain Follow up Dr. Alfaro tomorrow, contact his office for further recommendation Full liquid diet as directed by Dr. 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
--- NOTE | 2020-07-22 21:40 | US_ITS ---
WS: [id number] RIGHT UPPER QUADRANT ULTRASOUND HISTORY: ruq pain COMPARISON: 07/19/2020 Liver: 16.7 cm in length. Normal size liver. No bile duct dilatation or mass. Gallbladder: Normally distended gallbladder. There is a known stone in the neck of the gallbladder. T his stone is not very well visualized on today's study. Gallbladder wall is top normal size measuring about 4 mm. CBD: 0.3 cm Pancreas: Not visualized. Right kidney: 12.2 cm in length. Normal size and echogenicity. No hydronephrosis or mass. Aorta and IVC: Unremarkable abdominal aorta and IVC. No ascites. US/US gall bladder 04010 IMPRESSION: 1. Patient has a known stone at the neck of the gallbladder. Very mild gallbla dder wall thickening. No acute interval change since 07/19/2020. 2. No bile duct dilatation.
[2020-07-22 21:57] VITALS: RESP 22
[2020-07-22] MEDS: sodium chloride 0.9% 500 ML 999 ML IV (21:57)
[2020-07-22] MEDS: ondansetron 2 mg/ML SDV 2 mL 4 MG IVP (21:57)
[2020-07-22] MEDS: morphine 4 mg/mL SDV 1 mL IVP (21:57)
[2020-07-22 22:03] LABS: Basophils # 0.1 10^3/uL (0.0-0.1); Basophils % 0.8 %; Eosinophils # 0.3 10^3/uL (0.0-0.8); Eosinophils % 2.9 %; Hematocrit 45.6 % (42.0-52.0); Hemoglobin 15.2 g/dL (11.7-16.6); Lymphocytes # 3.1 10^3/uL (0.8-4.8); Lymphocytes % 32.7 %; Mean Corpuscular HGB Conc 33.3 g/dL (30.0-36.0); Mean Corpuscular Hemoglobin 28.9 pg (28.0-34.0); Mean Corpuscular Volume 86.7 fL (80-94); Mean Platelet Volume 10.3 fL (7.4-10.4); Monocytes # 0.6 10^3/uL (0.2-0.9); Monocytes % 6.7 %; Neutrophils # 5.29 10^3/uL (1.8-7.7); Neutrophils % 56.7 %; Nucleated Red Blood Cells % 0 %; Platelet Count 275 10^3/cmm (130-400); Red Blood Count 5.26 10^6/uL (4.1-5.3); Red Cell Distribution Width 13.1 % (12.1-15.1); White Blood Count 9.3 10^3/uL (4.0-10.0)
[2020-07-22 22:08] VITALS: BP 153/115; PULSE 90; RESP 22; O2SAT 95
[2020-07-22 22:26] VITALS: BP 131/112; PULSE 88; RESP 16; O2SAT 95
[2020-07-22] MEDS: HYDROmorphone 1 mg/mL INJ 1 mL 0.5 MG IVP ×2 (22:32→23:07)
[2020-07-22 22:34] LABS: Alanine Aminotransferase 21 U/L (0-41); Albumin Level 4.1 g/dL (3.5-5.2); Alkaline Phosphatase 82 IU/L (40-130); Aspartate Amino Transferase 15 U/L (0-40); Blood Urea Nitrogen 20 mg/dL (6-20); Calcium 8.8 mg/dL (8.5-10.5); Carbon Dioxide 23 mmol/L (22-29); Chloride 102 mmol/L (98-107); Globulin 3.3 g/dL (1.3-4.6); Glomerular Filtration Rate 111.3 mL/min (90-130); Glucose 115 mg/dL (65-115); Lipase 28 U/L (13-60); Osmolality Calculated 286 mOsm/kg (285-295); Sodium 136 mmol/L (136-145); Total Bilirubin 0.2 mg/dL (0.15-1.2); Total Protein 7.4 g/dL (6.6-8.7)
[2020-07-22 22:37] LABS: Anion Gap 14.9 (5-19); Potassium 3.9 mmol/L (3.5-5.1)
[2020-07-22 23:00] LABS: Add Urine Microscopic? NO
[2020-07-22 23:09] LABS: Urine Appearance Clear (CLEAR); Urine Color Yellow (Yellow)
[2020-07-22 23:10] LABS: Bilirubin Urine Neg (Negative); Blood Urine Neg (Negative); Glucose Urine UA Norm (Normal); Ketones Urine Negative (Negative); Leukocyte Esterase Urine Negative (Negative); Nitrate Urine Negative (Negative); Protein Urine Neg (Negative); Specific Gravity, Urine 1.025 (1.005-1.030); Urobilinogen Urine Norm (Negative)
[2020-07-23 00:11] VITALS: BP 163/87; PULSE 75; RESP 20; O2SAT 96
== END 2020-07-23 00:05 | disposition home or self-care (01) ==
PROVIDERS: Emergency Provider Nurse Practitioner Family
DX: K80.20 Calculus of gallbladder without cholecystitis without obstruction (principal)
CPT/HCPCS: 12345; 76705; 80053; 81003; 83690; 85025; 93005; 96374; 96375; 99283; J1170; J2270; J2405; J7040

== ENCOUNTER 2020-07-25 11:19 | Emergency (ER) | payer SELFPAY ==
[2020-07-25] VITALS (9 sets, daily range): BP systolic 135–162; BP diastolic 65–118; PULSE 66–107; RESP 18–26; TEMP 36–37; O2SAT 96–99; BMI 43.3
--- NOTE | 2020-07-25 11:41 | ED_ITS ---
HPI - Abdominal Pain General: Chief Complaint: Abdominal Pain Stated Complaint: SEVERE AB PAIN, POSS GALLBLADDER ATTACK Time Seen by Provider: 07/25/20 11:39 History of Present Illness: HPI narrative: Patient is a 35-year-old male comes to the ED with right upper quadrant abdominal pain with nausea and vomiting. Patient has a history of Mary lithiasis and saw Dr. Alfaro yesterday for a preop appointment. He has been seen here in the ED on July 22 to July 19 for same complaint. Patient says he has an appointment to get surgery done on July 30. Patient is here today due to right upper quadrant abdominal pain that started a couple hours ago. Patient says he has not eaten or drank anything today and pain just started up randomly. He is having nausea as well. Pain is described as sharp and is rated a 10 out of 10. Patient also indicated that he needs to get a Covid test before his surgery and was asking if we can perform a Covid test while he is here. Patient denies any fever, chills or any upper respiratory symptoms. Associated Symptoms: Denies chills, constipation, diarrhea, dysuria, fever(s), hematochezia, hematuria, nausea and vomiting Review of Systems Const: Denies: fever(s), chills or fatigue Eyes: Denies: change in vision or eye discomfort ENMT: Denies: throat pain, odynophagia, nasal discharge or nasal congestion Card: Denies: chest pain, palpitations, edema, swelling of feet/ankles, dyspnea on exertion or orthopnea Resp: Denies: dyspnea, productive cough or non-productive cough GI: Reports: abdominal pain; Denies: nausea, vomiting, diarrhea, constipation or hematochezia : Denies: flank pain, difficulty urinating, dysuria or hematuria Musc: Denies: neck pain, back pain or extremity swelling Skin/Breast: Denies: rash or new lesions Neuro: Denies: headache(s), numbness in extremities or weakness in extremities [facility] ED PFSH: Surgical History History of appendectomy Social History Caregiver/support person: Yes Lives independently: Yes Household members: spouse Marital status: Physical Exam Const: COMMON NORMALS: no acute distress, patient oriented x3 and alert GENERAL APPEARANCE: cooperative and comfortable HENMT: COMMON NORMALS: normocephalic HEAD & SCALP: normocephalic MOUTH: Normal oral and palatal mucosa present THROAT: posterior oropharynx normal a nd uvula midline Neck/C-Spine: COMMON NORMALS: supple GENERAL: Yes normal visual inspection Resp: COMMON NORMALS: normal respiratory effort, No retractions, No use of accessory muscles and clear to auscultation bilaterally AUSCULTATION: clear to auscultation bilaterally Cardio: COMMON NORMALS: regular rate, regular rhythm, S1 normal heart sound present, S2 normal heart sound present, No gallops present (Cardio), No clicks present (Cardio), No murmurs present (Cardio) and Peripheral pulses 2+ throughout RATE: regular rate RHYTHM: regular rhythm HEART SOUNDS: S1 normal heart sound present and S2 normal heart sound present PERIPHERAL PULSES: Peripheral pulses 2+ throughout GI: COMMON NORMALS: Normal to inspection, nondistended, normoactive bowel sounds present, Soft to palpation and no masses PALPATION: Yes Soft to palpation and Yes Tenderness to palpation present (GI) Details: RUQ (Positive Long sign.) : COMMON NORMALS: Yes no CVA tenderness BLADDER/KIDNEY EXAM: Yes no CVA tenderness Back/Pelvis: COMMON NORMALS: no CVA tenderness Extremity: COMMON NORMALS: normal to inspection Neuro: COMMON NORMALS: patient oriented x3 SENSORIUM/ORIENTATION: Yes alert GAIT: Yes Normal gait present Skin: GENERAL SKIN EXAM: dry skin Course Reevaluation(s): Reevaluation #1: Patient's pain is well controlled here in the ED. He feels comfortable to discharge home and go to his scheduled lap lenny surgery on Wednesday. Time: 14:48 Consultations: Consultation #1: I contacted Dr. Alfaro about patient case and told him about his symptoms here in the ED. Dr. Alfaro saw patient yesterday for preop screen and has scheduled a lap lenny surgery on July 30. Based off the patient's labs and ultrasound findings he did not think patient needs urgent cholecystectomy today. If patient is pain is controlled and he feels good going home he is okay with having him discharge and he will see him on Wednesday for surgery. Vital Signs: Vital signs: Vital Signs Temperature 98.6 F 01/21/21 15:33 Pulse Rate 88 07/25/20 15:33 Respiratory Rate 18 07/25/20 15:33 Blood Pressure 135/87 07/25/20 15:33 Pulse Oximetry 98 07/25/20 15:33 MDM - Abdominal Pain MDM Narrative: Medical decision making narrative: Patient is a 35-year-old male comes to the ED with right upper quadrant abdominal pain nausea vomiting. He has been seen here in the ED on July 22 and July 19 for same complaint. He saw all Dr. Alfaro yesterday and is scheduled to get lap lenny surgery on July 30. Presurgery Covid screening performed and is Covid test was negative. All labs and ultrasound findings remain unchanged today compared to labs and ultrasound done on July 22. I talked to Dr. Alfaro about patient's case and he thought that patient does not need surgery today and if his pain can be controlled he can be discharged. patient's pain was controlled here in the ED and he was discharged home. Patient has a scheduled lap lenny surgery on July 30 he was told to have a clear liquid diet and advance as tolerated. Patient has pain meds and nausea meds at home. Patient understood and agreed with plan. Lab Data: Attestation: I reviewed the patient's lab results. Labs: Lab Results 07/25/20 07/25/20 07/25/20 Range/Units 12:02 12:02 12:59 WBC 10.6 H (4.0-10.0) 10^3/ uL RBC 5.83 H (4.1-5.3) 10^6/u L Hgb 16.9 H (11.7-16.6) g/dL Hct 49.7 (42.0-52.0) % MCV 85.2 (80-94) fL MCH 29.0 (28.0-34.0) pg MCHC 34.0 (30.0-36.0) g/dL RDW 12.9 (12.1-15.1) % Plt Count 295 (130-400) 10^3/c mm MPV 10.3 (7.4-10.4) fL Neut % (Auto) 60.5 % Lymph % (Auto) 29.7 % [place] % (Auto) 6.8 % Eos % (Auto) 2.0 % Baso % (Auto) 0.8 % Neut # (Auto) 6.43 (1.8-7.7) 10^3/u L Lymph # (Auto) 3.2 (0.8-4.8) 10^3/u L [place] # (Auto) 0.7 (0.2-0.9) 10^3/u L Eos # (Auto) 0.2 (0.0-0.8) 10^3/u L Baso # (Auto) 0.1 (0.0-0.1) 10^3/u L Nucleated RBC % (a uto) 0 % Nucleated RBCs # 0.0 /100WBC Sodium 140 (136-145) mmol/L Potassium 4.3 (3.5-5.1) mmol/L Chloride 103 (98-107) mmol/L Carbon Dioxide 26 (22-29) mmol/L Anion Gap 15.3 (5-19) BUN 16 (6-20) mg/dL Creatinine 0.9 (0.7-1.2) mg/dL GFR Calculation 97.2 (90-130) mL/min Glucose 122 H (65-115) mg/dL Calculated Osmolal ity 292 (285-295) mOsm/k g Calcium 10.5 (8.5-10.5) mg/dL Total Bilirubin 0.4 (0.15-1.2) mg/dL AST 13 (0-40) U/L ALT 24 (0-41) U/L Alkaline Phosphata se 91 (40-130) IU/L Total Protein 7.9 (6.6-8.7) g/dL Albumin 4.5 (3.5-5.2) g/dL Globulin 3.4 (1.3-4.6) g/dL Lipase 24 (13-60) U/L SARS-CoV-2 Ag (Rap id) Negative (Negative) Imaging Data ^: US: Attestation: I personally reviewed and interpreted this imaging study as follo ws: Radiologist's impression: [address] [address] Ultrasound Report Signed Patient: Noah Kidd Unit #: [id number] : 1985 Age/Sex: 35 / M ADM Date: 07/25/20 Loc: ER Room/Bed: Attending Dr: Ordering Provider/Ordering MD: Saman Avila Date of Service: 07/25/20 Procedure(s): US gall bladder 03018 Accession Number(s): [id number] Report Number: [id number] WS: [id number] Gallbladder ultrasound, 07/25/2020 Clinical Data: RUQ pain Comparison: Right upper quadrant ultrasound, 07/22/2020 Findings: The gallbladder shows a stone at the neck of the gallbladder.. The wall measures 0.4 cm with no pericholecystic fluid. The common bile duct is 0.5 cm and there are no intrahepatic ductal abnormalities. Liver shows no cysts, masses or dilated intrahepatic ducts. The liver measures 18.12 cm. The pancreas is not obscured by overlying bowel gas and no cyst, pseudocyst, or evidence of pancreatitis is noted. Right kidney measures 12.1 cm and no cyst, masses or hydronephrosis can be seen. The aorta and inferior vena cava show no vascular abnormalities. US/US gall bladder [id number] Impression: 1. Stone impacted at neck of the gallbladder. 2. Gallbladder wall thickened consistent with acute and/or chronic cholecystitis. Dictated By: Norma Dubois MD Signed By: Norma Dubois MD Signed Date/Time: 07/25/20 1330 DD/ 1322 Discharge Plan Discharge Patient Disposition: Home Clinical Impression: Recurrent biliary colic Cholelithiasis Qualifiers: Cholelithiasis location: gallbladder Cholecystitis presence: without cholecystitis Biliary obstruction: without biliary obstruction Qualified Code(s): K80.20 - Calculus of gallbladder without cholecystitis without obstruction Condition: Stable Prescriptions: No Action ondansetron HCl [Zofran] 4 mg tablet 4 mg PO Q6H PRN (Reason: nausea and vomiting) Qty: 20 RF: 0 hydrocodone-acetaminophen 5-325 mg tablet 1 tab PO Q6H PRN (Reason: pain) Qty: 15 RF: 0 [place] 7.5-325 mg Tablet 1 tab PO ONCE RF: 0 Discharge Orders: Discharge ED (Routine); Ordered 07/25/20 Ordered By: Saman Avila Discharge Diet: Advance as tolerated and Clear Liquid Discharge Activity: Increase activity as tolerated Patient Instructions: Cholecystitis (ED), Biliary Colic (ED) Activity Restrictions/Additional Instructions: Follow-up with medical provider as directed at your scheduled gallbladder surgery on July 30. Make sure to have a clear liquid diet and slowly advance as tolerated. Your Covid screening test was negative today. Take medications as prescribed. Return to the ER or your medical provider if condition worsens. Please read and understand discharge instructions. If any questions, please ask. Coding Level of Care Code ED World Language Teacher for Chg Fwd Exam Comprehensive
--- NOTE | 2020-07-25 12:07 | PC.NURSE ---
Here recently for same S/S. Active vomiting and retching. Appears to be in Severe pain from gallbladder issues.
[2020-07-25] MEDS: ondansetron 2 mg/ML SDV 2 mL 4 MG IVP (12:08)
[2020-07-25] MEDS: morphine 4 mg/mL SDV 1 mL IVP (12:09)
[2020-07-25] MEDS: sodium chloride 0.9% 1,000 ML 999 ML IV (12:10)
--- NOTE | 2020-07-25 12:12 | US_ITS ---
WS: [id number] Gallbladder ultrasound, 07/25/2020 Clinical Data: RUQ pain Comparison: Right upper quadrant ultrasound, 07/22/2020 Findings: The gallbladder shows a stone at the neck of the gallbladder.. The wall measures 0.4 cm with no peric holecystic fluid. The common bile duct is 0.5 cm and there are no intrahepatic ductal abnormalities. Liver shows no cysts, masses or dilated intrahepatic ducts. The liver measures 18.12 cm. The pancreas is not obscured by overlying bowel gas and no cyst, pseudocyst, or evidence of pancreati tis is noted. Right kidney measures 12.1 cm and no cyst, masses or hydronephrosis can be seen. The aorta and inferior vena cava show no vascular abnormalities. US/US gall bladder 64104 Impression: 1. Stone impacted at neck of the gallbladder. 2. Gallbladder wall thickened consistent with acute and/or chronic cholecystiti s.
[2020-07-25 12:15] LABS: Basophils # 0.1 10^3/uL (0.0-0.1); Basophils % 0.8 %; Eosinophils # 0.2 10^3/uL (0.0-0.8); Hematocrit 49.7 % (42.0-52.0); Hemoglobin 16.9 g/dL (11.7-16.6); Lymphocytes # 3.2 10^3/uL (0.8-4.8); Lymphocytes % 29.7 %; Mean Corpuscular Volume 85.2 fL (80-94); Mean Platelet Volume 10.3 fL (7.4-10.4); Monocytes # 0.7 10^3/uL (0.2-0.9); Monocytes % 6.8 %; Neutrophils # 6.43 10^3/uL (1.8-7.7); Neutrophils % 60.5 %; Nucleated Red Blood Cells % 0 %; Platelet Count 295 10^3/cmm (130-400); Red Blood Count 5.83 10^6/uL (4.1-5.3); Red Cell Distribution Width 12.9 % (12.1-15.1); White Blood Count 10.6 10^3/uL (4.0-10.0)
[2020-07-25] MEDS: HYDROmorphone 1 mg/mL INJ 1 mL IVP (12:16)
[2020-07-25 12:35] LABS: Alanine Aminotransferase 24 U/L (0-41); Albumin Level 4.5 g/dL (3.5-5.2); Alkaline Phosphatase 91 IU/L (40-130); Anion Gap 15.3 (5-19); Aspartate Amino Transferase 13 U/L (0-40); Blood Urea Nitrogen 16 mg/dL (6-20); Calcium 10.5 mg/dL (8.5-10.5); Carbon Dioxide 26 mmol/L (22-29); Chloride 103 mmol/L (98-107); Globulin 3.4 g/dL (1.3-4.6); Glomerular Filtration Rate 97.2 mL/min (90-130); Glucose 122 mg/dL (65-115); Lipase 24 U/L (13-60); Osmolality Calculated 292 mOsm/kg (285-295); Potassium 4.3 mmol/L (3.5-5.1); Sodium 140 mmol/L (136-145); Total Bilirubin 0.4 mg/dL (0.15-1.2); Total Protein 7.9 g/dL (6.6-8.7)
--- NOTE | 2020-07-25 13:17 | PC.NURSE ---
Placed o2 after Dilaudid 1 mg
[2020-07-25 13:46] LABS: SARS Covid-2 Antigen Negative (Negative)
--- NOTE | 2020-07-25 14:00 | PC.NURSE ---
Placed socks on feet and gave warm blankets
[2020-07-25] MEDS: HYDROcodone-acetaminophen 7.5-325 mg Tablet 1 TAB PO (15:41)
== END 2020-07-25 15:36 | disposition home or self-care (01) ==
PROVIDERS: Emergency Provider Physician Assistant
DX: K80.20 Calculus of gallbladder without cholecystitis without obstruction (principal)
CPT/HCPCS: 12345; 76705; 80053; 83690; 85025; 87426; 96361; 96374; 96375; 99283; J1170; J2270; J2405; J7030

== ENCOUNTER 2020-07-30 09:42 | Day surgery (SDC) | payer SELFPAY ==
[2020-07-29 10:47] VITALS: BMI 44.1
[2020-07-30] VITALS (8 sets, daily range): BP systolic 134–172; BP diastolic 76–103; PULSE 69–82; RESP 16–20; TEMP 36.2–36.4; O2SAT 93–98
[2020-07-30] MEDS: sodium chloride 0.9% 1,000 ML 30 ML IV (10:15)
[2020-07-30] MEDS: heparin 5,000 unit/mL INJ 1 mL 2000 UNIT SUBCUT (10:27)
--- NOTE | 2020-07-30 11:28 | ANES.PREANE2 ---
Pre-Anesthetic Assessment Pre-Anesthetic Assessment: Height/Weight: Height 1.73 m Weight 131.542 kg Pulse Resp BP Pulse Ox 76 18 134/96 97 07/30/20 10:00 07/30/20 10:00 07/30/20 10:00 07/30/20 10:00 Preop Diagnosis: Symptomatic cholelithiasis Proposed Procedure: Operation Date: 07/30/20 11:20 Proposed Procedures p Laparoscopic Cholecystectomy 24772 K80.20(Not Applicable) - Preston Alfaro MD Was Beta Evans taken within 24 hours: N/A Last intake: Intake Last Liquid Date 07/29/20 Last Liquid Time 23:00 Last Solid Date 07/29/20 Last Solid Time 20:00 Social: Social History: Tobacco and No alcohol Exam: Pre-Anes Outpt Exam: alert, oriented x 3, clear to auscultation bilaterally and regular rate & rhythm Airway: Submandibular: WNL Cervical ROM: WNL MP: 2 Dentition: Full Pulmonary: Pulmonary: COPD Metabolic: Metabolic: Morbid obesity Anesthetic Plan: ASA status: 2 Anesthesia: General Risk of > 500 ml blood loss (7ml/kg in children): No Meds/Allergies Current Medications: Current Medications Generic Name Dose Route Start Last Admin Trade Name Freq PRN Reason Stop Dose Admin Sodium Chloride 1,000 mls @ 30 ml s/hr 07/30/20 07:45 07/30/20 10:15 Sodium Chloride 0.9% IV 07/31/20 07:44 30 mls/hr .Q24H BURKE Administration PFSH Anesthesia PFSH: Surgical History History of appendectomy Social History Caregiver/support person: Yes Lives independently: Yes Household members: spouse Marital status: Data Anesthesia Cardiac Studies: No Data to Display
--- NOTE | 2020-07-30 12:23 | W.PM.OPSUD ---
Surgery/Procedure H&P Update DATE OF PROCEDURE: July 30, 2020 DATE H&P PERFORMED: 07/24/20 H&P UPDATE INFORMATION: I have reviewed H&P completed within last 30 days, I have examined patient prior to procedure and Changes to prior documentation as noted here CHANGES TO PREVIOUS DOCUMENTATION: I did discuss with the patient about the importance of realizing if there is a potential enlargement of the liver that may affect the safety of the procedure that I may abort the procedure. Patient understands this potential and he would like to proceed accordingly. Patient also understands the potential conversion to open. The discussion took place in the presence of patient's spouse and nursing staff Ms. Hicks and Susie. I explained for the patient that even of the ultrasound showed no recent fatty liver changes intraoperatively the picture could be different. PREOP DIAGNOSIS: Symptomatic cholelithiasis PRIMARY INDICATION FOR PROCEDURE: The same PLANNED PROCEDURE: Operation Date: 07/30/20 11:20 Proposed Procedures p Laparoscopic Cholecystectomy 85760 K80.20(Not Applicable) - Preston Alfaro MD
--- NOTE | 2020-07-30 13:52 | PM.OP ---
Operative Report Date of procedure: July 30, 2020 Pre-op Diagnosis: Symptomatic cholelithiasis Post-op Diagnosis: Chronic calculus cholecystitis with mild to moderate hepatomegaly Procedure Done: Laparoscopic cholecystectomy Implants: Small piece of Surgicel Specimens removed/disposition: Gallbladder and contents Surgeon: Preston Alfaro Automotive General Manager: Surgical crys Mccracken Circulating nurse Salena Linares Anesthesia: General (GETA CARPET BINDER Suleiman) Estimated blood loss (mL): 100 IV fluids (mL): 1,200 Condition: stable Disposition: same day Brief History: This is a 35 years old gentleman with symptomatic cholelithiasis history of fatty liver . Full H&P per chart plan of care; After thorough history physical examination and reviewing the chart and images with my personal interpretation,I counseled the patient for laparoscopic cholecystectomy possible open, indications risks including but not limited injury to the common bile duct and other viscera.benefits and alternatives all discussed with the patient, and she did agree to proceed. All questions have been answered and all concerns have been addressed to patient's satisfaction. Rationale was carefully and clearly discussed with the patient.Appropriate informed consent have been reviewed and signed. Procedure: Patient was identified in the holding area and taken back to the operative suite, placed in supine position intubated by anesthesia . Time-out was done verifying the patient's name/date of /planned procedure and destination after the procedure, all were in agreement. SCDs confirmed to be functioning, preoperative antibiotics administered per protocol, and beta justino protocol was confirmed. Patient was given prophylactic heparin subcu prior to surgery. Patient was appropriately secured to the table, footboard was applied to the OR table, before prep and drape anesthesia was asked to tilt the table back and forth to make sure that the patient is appropriately secured and she was. Prep and drape of the abdomen was done under the usual sterile technique, followed by that supraumbilical skin incision,skin incision was done by a 15 blade knife, Isbell trocar technique was used to enter the abdominal without injuring any abdominal viscera, started by low flow gas insufflation followed by a high flow, started with a 10 mm laparoscope and under direct vision there was no evidence of any injuries, the scope then switched to a 30? ,10 millimeter scope and under direct visualization 5 millimeter trocar was inserted in the epigastric region followed by two 5 mm trocars were inserted in the right upper quadrant that was done after injection of local lidocaine 2% at all incision sites. Gallbladder showed chronic calculus cholecystitis with adhesions associated with mild to moderate hepatomegaly Patient was then positioned in the head up and tilted to the left Ratcheted forceps were introduced into the lateral most 5mm port and was applied unto the fundus of the gallbladder cephalad and using Bullet forceps the infundibulum of the gallbladder was retracted laterally.Noticed to have adhesions towards the cystic duct and cystic artery. Using [place] forceps then L-hook cautery to dissect the peritoneum overlying the Calot's triangle which was then opened medially and laterally until the cystic duct and the cystic artery were skeletonized.Dissection was carried along the body of the gallbladder and after ensuring critical view of safety was identfied. Cystic duct and cystic artery where seen connected to the gallbladder. Clips were applied on the cystic duct towards the common bile duct 1 towards the gallbladder then divided is in sharp scissors, 2 clips were then applied onto the cystic artery and 1 towards the gallbladder and divided by sharp scissors.Additional traversing vessel was clipped and divided as well.Note that the gallbladder was chronically inflamed with adhesions. Dissection was then carried along of the gallbladder from the gallbladder fossa using cautery as well as sharp dissection with heat energy. The gallbladder then was dissected out from the gallbladder fossa totally , cholecystectomy was then achieved and was placed in an Endo Catch bag and then retrieved from the Isbell trocar site under direct visualization using a 5 mm 30? scope through the epigastric trocar, specimen was then passed to the circulating nurse to go for permanent pathology,irrigation.Surgical clips appeared to be in good position. and hemostasis was done to the gallbladder fossa after hemostasis was secured and finalized by placing a small piece of the Surgicel at the gallbladder fossa, final survey laparoscopy was done that showed no injuries.Suction irrigation was obtained. Final look laparoscopy showed no injuries or bleeding. The supraumbilical fascial defect was then closed using [id number] #1 PDS suture sutures using a fascial closure device ;Nicolás Deleon under direct visualization Gas was allowed to deflate,Trocars were then taken out under direct vision there was no evidence of bleeding Specimen was passed to the circulating nurse for permanent pathology. No drains were placed and the supraumbilical incision as well as all trocar sites were closed with 3-0 Vicryl followed by 4-0 Monocryl to approximate the skin edges of the supraumbilical incision, dressing was applied in the form of surgical glue and the patient patient got extubated and was taken to recovery area in a stable condition. Count of sponges,needles and instruments were completed at the end of the procedure. I was present for the whole entire procedure.
--- NOTE | 2020-07-30 15:13 | ANE.PACU2 ---
Inpatient post-anesthesia follow up: Airway intact: Yes Vital signs: Temperature 97.2 F Pulse Rate 73 Respiratory Rate 18 Blood Pressure 143/76 Pulse Oximetry 93 Oxygen Delivery Me thod Room Air Oxygen Flow Rate 6 Fraction of Inspir ed Oxygen Hydration adequate: Yes Nausea and vomiting: No Pain level: 4 Mental status: Baseline
[2020-07-30] MEDS: HYDROcodone-acetaminophen 5-325 mg Tablet 1 TAB PO (15:16)
[2020-07-30] MEDS: HYDROmorphone 1 mg/mL INJ 1 mL 0.5 MG IVP (15:18)
== END 2020-07-30 16:19 | disposition home or self-care (01) ==
PROVIDERS: Visit Provider Surgery
PROC: 0FT44ZZ Resection of Gallbladder, Percutaneous Endoscopic Approach (ICD-10-PCS; CPT 47562; principal; 2020-07-30 11:20)
DX: K80.10 Calculus of gallbladder with chronic cholecystitis without obstruction (principal); J44.9 Chronic obstructive pulmonary disease, unspecified; E66.01 Morbid (severe) obesity due to excess calories; Z68.41 Body mass index [BMI] 40.0-44.9, adult
CPT/HCPCS: 47562; 12345; 88304; 96365; 96372; 96374; J0131; J0690; J1100; J1170; J1644; J2270; J2405; J2704; J2710; J3010; J3490; J7030

== ENCOUNTER 2023-02-23 15:24 | Outpatient (CLI) | payer MEDICAID, SELFPAY ==
--- NOTE | 2023-02-23 15:28 | MR_ITS ---
WS: [id number] MRI LUMBAR SPINE NONCONTRAST HISTORY: VERTEBROGENIC LOW BACK PAIN COMPARISON: None available. TECHNIQUE: Sagittal and axial multisequence imaging is submitted. Normal lumbar alignment with no compression fractures or marrow edema. Disc spaces and vertebral body heights are well-preserved. Conus terminates normally at L1. L1-L2: Normal. L2-L3: Mild annular disc bulging and mild facet arthritis. There is mild encroachment upon the subart icular recesses. Disc does contact but not displace the traversing L3 nerve roots. L3-L4: Mild annular disc bulging and mild facet arthritis. Disc contacts the subarticular recesses an d the nerve roots. No displacement. Very mild RIGHT foraminal stenosis. L4-L5: Mild annular disc bulging with a very shallow RIGHT paracentral disc protrusion and annular fi ssure. Moderate ligamentum flavum and facet arthritis. Mild central, bilateral subarticular recess an d foraminal stenosis. There is very minimal encroachment upon the subarticular recesses. L5-S1: Normal. Normal paravertebral soft tissues IMPRESSION: 1. No high-grade central stenosis or large disc protrusions. 2. Mild subarticular recess encroachment at L2-3, L3-4 and L4-5 with mild encroachment upon the trave rsing nerve roots at each level. 3. L4-5: Mild central, bilateral subarticular recess and foraminal stenosis.
== END 2023-02-23 15:25 | disposition home or self-care (01) ==
PROVIDERS: Visit Provider Family Medicine
DX: M48.061 Spinal stenosis, lumbar region without neurogenic claudication (principal); M54.51 Vertebrogenic low back pain
CPT/HCPCS: 72148

== ENCOUNTER 2023-10-15 17:44 | Emergency (ER) | payer MEDICAID, SELFPAY ==
[2023-10-15 17:53] VITALS: BP 175/111; PULSE 107; RESP 20; TEMP 37; O2SAT 93
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
[2023-10-15] MEDS: ketorolac 60 mg/2 mL INJ IM (18:17)
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
[2023-10-15 19:57] VITALS: BP 162/108; PULSE 102; RESP 18; O2SAT 96
== END 2023-10-15 19:50 | disposition home or self-care (01) ==
PROVIDERS: Emergency Provider Physician Assistant
DX: S73.101A Unspecified sprain of right hip, initial encounter (principal); S80.01XA Contusion of right knee, initial encounter; V23.49XA Other motorcycle driver injured in collision with car, pick-up truck or van in traffic accident, initial encounter
CPT/HCPCS: 73502; 73562; 96372; 99284; J1885

== ENCOUNTER 2023-10-17 15:41 | Emergency (ER) | payer MEDICAID, SELFPAY ==
[2023-10-17 15:49] VITALS: BP 158/92; PULSE 98; RESP 17; TEMP 36.9; O2SAT 95; BMI 50.9
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
[2023-10-17] MEDS: amoxicillin-clav 875-125 mg Tablet 1 TAB PO (17:54)
[2023-10-17 18:09] VITALS: BP 156/91; PULSE 89; RESP 16; TEMP 36.9; O2SAT 97
--- NOTE | 2023-10-18 08:41 | DCPLANNER ---
Message sent to Ortho for a follow up on Hematoma of right Knee
== END 2023-10-17 18:10 | disposition home or self-care (01) ==
PROVIDERS: Emergency Provider Nurse Practitioner Family
DX: S80.01XA Contusion of right knee, initial encounter (principal); V13.4XXA Pedal cycle driver injured in collision with car, pick-up truck or van in traffic accident, initial encounter
CPT/HCPCS: 93971; 99284

== ENCOUNTER 2023-10-22 16:36 | Emergency (ER) | payer MEDICAID, SELFPAY ==
[2023-10-22 16:51] VITALS: BP 151/100; PULSE 96; RESP 18; TEMP 36.5; O2SAT 96; BMI 50.2
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
== END 2023-10-22 18:09 | disposition home or self-care (01) ==
PROVIDERS: Emergency Provider Emergency Medicine
DX: S80.01XA Contusion of right knee, initial encounter (principal); R60.0 Localized edema; V29.99XA Rider (driver) (passenger) of other motorcycle injured in unspecified traffic accident, initial encounter
CPT/HCPCS: 99283

== ENCOUNTER → 2024-01-13 09:19 | Outpatient (BNVA) | payer MEDICAID, SELFPAY | PROVIDERS: Visit Provider Physician Assistant | DX: S80.01XA Contusion of right knee, initial encounter; X58.XXXA Exposure to other specified factors, initial encounter | CPT/HCPCS: 73560; 73565 ==

== ENCOUNTER 2024-04-03 11:38 | Outpatient (CLI) | payer MEDICAID, SELFPAY ==
--- NOTE | 2024-04-03 11:45 | MR_ITS ---
WS: [id number] MRI RIGHT KNEE NONCONTRAST TECHNIQUE: Axial PD, coronal PD fat sat, coronal PD, sagittal PD, and sagittal PD fat-sat images obta ined. CLINICAL INFORMATION: knee pain COMPARISON: None. FINDINGS: Distal quadriceps and patella tendons are intact. Mild chondromalacia patella. Normal medial and late ral patellar retinaculum. Tiny suprapatellar effusion. Normal ACL and PCL. Normal lateral meniscus. Suggestion of a tiny tear along the posterior horn medial meniscus at the me niscal root. Normal medial and lateral collateral ligaments. Normal popliteal fossa. Fibula head appe ars normal. Normal popliteus. Normal bone marrow signal in the femoral condyles and tibial plateau. S mall amount of prepatellar and infrapatellar soft tissue edema. MR/MR knee RT wo con* [id number] IMPRESSION: 1. Normal ACL and PCL. 2. Mild chondromalacia patella. 3. Normal bone marrow signal in the femoral condyles and tibial plateau. 4. Suggestion of a tiny tear along the posterior horn medial meniscus at the m eniscal root. 5. Normal lateral meniscus. 6. Medial and lateral collateral ligaments appear intact. 7. Small amount of prepatellar and infrapatellar soft tissue edema. 8. No other acute findings. Outbridge grading: grade II: blister-like swelling/fraying of articular cartila ge extending to surface
== END 2024-04-03 11:39 | disposition home or self-care (01) ==
LOC: RAD 11:38
PROVIDERS: Visit Provider Student in an Organized Health Care Education/Training Program
DX: R93.7 Abnormal findings on diagnostic imaging of other parts of musculoskeletal system (principal); M25.569 Pain in unspecified knee
CPT/HCPCS: 73721

== ENCOUNTER 2024-06-14 05:37 | Day surgery (SDC) | payer MEDICAID, SELFPAY ==
[2024-06-14] VITALS (10 sets, daily range): BP systolic 85–155; BP diastolic 56–106; PULSE 70–79; RESP 6–17; TEMP 36.3–36.7; O2SAT 91–96; BMI 50.1
--- NOTE | 2024-06-14 05:50 | ANES.PREANE2 ---
Pre-Anesthetic Assessment Height/Weight: Height 5 ft 8 in Preop Diagnosis: Knee pain Operation Date: 06/14/24 07:00 Proposed Procedures p Arthroscopy and diagnostic with partial medial meniscectomy versus repair(Right) - David Avila DO Was Beta Evans taken within 24 hours: N/A Was Clonidine taken within 24 hours: N/A Social No alcohol and No tobacco Anesthetic Plan ASA status: 2 Anesthesia: General Other: No prior issues with anesthesia in the past, grade 1 view with Lawson 2 previously NPO since yesterday Denies any cardiac or pulmonary issues EKG showing sinus rhythm METs greater than 4 Plan for general anesthesia Medications/Allergies Home Medications Medication Instructions Recorded Confirmed Last Taken Type ibuprofen 800 mg tablet See Rx Instructions .Route 12/17/23 06/13/24 06/11/24 Rx .COMPLEX #60 tabs hydrocodone 5 mg-acetaminophen 325 1 tab PO Q8H PRN pain 7 days #21 05/02/24 06/13/24 Unknown Rx mg tablet tabs Allergies Allergy/AdvReac Type Severity Reaction Status Date / Time No Known Allergies Allergy Verified 06/13/24 10:29 PFSH Anesthesia Medical History Recurrent biliary colic Surgical History History of appendectomy Social History Smoking and tobacco/nicotine status: current every day tobacco/nicotine user Alcohol intake: current Alcohol intake frequency: holidays/special occasions only Caregiver/support person: Yes Lives independently: Yes Household members: spouse Marital status: Data Anesthesia Cardiac Studies: No Data to Display
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
[2024-06-14] MEDS: sodium chloride 0.9% 1,000 ML 30 ML IV (06:24)
[2024-06-14] MEDS: acetaminophen 1,000 MG/100 ML PIGGYBACK 400 MG IV (06:25)
[2024-06-14] MEDS: ketorolac 30 mg/mL INJ IVP (06:27)
--- NOTE | 2024-06-14 06:59 | W.PM.OPSFHP ---
Same Day Surgery H&P Indication for Procedure/HPI DATE OF PROCEDURE: June 14, 2024 CHIEF COMPLAINT/INDICATIONFOR SURGICAL PROCEDURE: Right knee medial meniscus tear PREOP DIAGNOSIS: Right knee medial meniscus tear PLANNED PROCEDURE: Operation Date: 06/14/24 07:00 Proposed Procedures p Arthroscopy and diagnostic with partial medial meniscectomy versus repair(Right) - David Avila DO Medications/Allergies* Allergies/Adverse Reactions Allergy/AdvReac Type Severity Reaction Status Date / Time No Known Allergies Allergy Verified 06/13/24 10:29 Current Medications: Generic Name Dose Route Start Last Admin Trade Name Freq PRN Reason Stop Dose Admin Sodium Chloride 1,000 mls @ 30 mls/hr 06/14/24 06:00 06/14/24 06:24 Sodium Chloride 0.9% IV 06/15/24 05:59 30 mls/hr .Q24H BURKE Administration Pertinent History/Comorbid Conditions* Medical History (Updated 02/22/24 @ 08:22 by David Avila DO) Recurrent biliary colic Surgical History (Updated 05/20/20 @ 07:46 by Cesar Del Angel DO) History of appendectomy Social History Smoking and tobacco/nicotine status: current every day tobacco/nicotine user Alcohol intake: current Alcohol intake frequency: holidays/special occasions only Caregiver/support person: Yes Lives independently: Yes Household members: spouse Marital status: Pertinent Exam Findings alert, oriented x 3, operative site marked and procedure specific exam findings Please refer to detailed orthopedic examination on 04/23/2024: Right knee Full knee range of motion 0-120 mild Palpable joint effusion Medial joint line tenderness No lateral joint line tenderness Tender over retropatellar space No crepitus on knee range of motion Stable varus valgus stress Positive Sara's with pain Recommendations Surgery/Procedure today Other Plans: Plan proceed to the OR today for right knee diagnostic and surgical arthroscopy with partial medial meniscectomy versus repair. Patient understands the ins and outs procedure the risk benefits complication alternatives to surgery and through shared decision-making elects proceed with surgical intervention. All questions answered at this time. Coding Level of Care Code Acute Code for Elizabeth Fwamira
[2024-06-14] MEDS: ceFAZolin 3,000 MG in sodium chloride 0.9% (plus) 100 ML 200 MG IV (07:03)
[2024-06-14] MEDS: lidocaine-epi 2% PF 1:200,000 20 mL SDV 40 ML XX (07:44)
--- NOTE | 2024-06-14 07:58 | P.BOP_ITS ---
Date of Procedure: 06/14/2024 Surgeon: David Avila DO [facility] Director(s): Saman Avila PA-C Procedure(s) performed: Right knee diagnostic and surgical arthroscopy with partial medial meniscectomy Right knee diagnostic and surgical arthroscopy with partial lateral meniscectomy Right knee diagnostic and surgical arthroscopy with extensive synovectomy (medial lateral patellofemoral compartments Right knee diagnostic and surgical arthroscopy with patellofemoral chondroplasty Findings of the procedure(s): Patient found to have a small flap tear of the posterior horn of the medial and lateral meniscus underwent procedure as planned issues or complications patient taken PACU stable condition. Estimated blood loss: 1 mL Specimen(s) removed: None Post-operative diagnosis: Right knee medial and lateral meniscus tear, extensive synovitis, patellofemoral chondromalacia
--- NOTE | 2024-06-14 07:59 | P.OP_ITS ---
Operative Report Date of procedure: June 14, 2024 Surgeon: David Avila DO Flight Software Test Engineer: Saman Avila PA-C: PA was necessary for assistance in this case with knee positioning to execute the procedure, assistance with instrumentation, as well as assist with wound closure and dressing application. Procedure: Preoperative diagnosis: Right knee medial meniscus tear Post-op diagnosis: Right?knee?medial meniscus tear Right knee lateral meniscus tear Right?knee?extensive synovitis Right?knee?patellofemoral chondromalacia Procedure done: Right?knee?diagnostic and surgical arthroscopy with partial medial meniscectomy Right knee diagnostic and surgical arthroscopy with partial lateral meniscectomy Right?knee?diagnostic and surgical arthroscopy with extensive synovectomy of the medial lateral and patellofemoral compartments Right?knee?diagnostic and surgical arthroscopy with patellofemoral compartment chondroplasty Surgeon: David Avila DO Estimated blood loss: 1mL Tourniquet: No tourniquet was used IV fluids: See anesthesia record Complications: None Findings: See operative report narrative Condition: stable Disposition: same day Brief History: Patient is a 39-year-old male with right?knee?pain.? Patient has failed conservative treatment who has been worked up for right??knee?pain in the outpatient setting. MRI findings consistent with tear of the medial meniscus. talked in the office about treatment options patient would like to proceed with a right?knee?diagnostic and surgical arthroscopy with partial medial meniscectomy versus repair. Patient understand the ins and outs of the procedure the risk benefits complication alternatives to treatment options.? Understanding risk of surgery patient agree to proceed with surgical intervention.? ? Understanding this and patient agree to proceed with surgical intervention all questions answered. Procedure: Patient seen and evaluated in the preoperative holding area.? Consent was reviewed and signed with patient.? Correct extremity was then marked.? Patient seen evaluated Anesthesia Department once cleared for surgery patient was taken back to the operative suite.? Patient was transported onto the OR table in supine position.? All bony prominences well-padded patient was appropriate secured to the bed.? Once appropriately anesthetized a nonsterile tourniquet was applied to the right thigh.? The right lower extremity was then prepped and draped in standard orthopedic fashion.? Final timeout performed.? Patient received appropriate preoperative antibiotics. Patient received local anesthetic of lidocaine with epinephrine into the joint as well as around the portal sites.? No tourniquet was inflated A standard 2 portal vertical incision diagnostic and surgical arthroscopy of the right?knee?was performed in standard fashion.? Small stab incision made in the inferolateral portal introduced trocar and arthroscope into the suprapatellar pouch.? Suprapatellar pouch was subsequently visualized and found to have significant synovitis but no loose bodies.? Patient had noticeable significant inflamed infrapatellar fat pad and thickening hypertrophic within the patellofemoral compartment.? Patient had rubbed an indentation on the medial femoral condyle from the thickened infrapatellar fat pad and plica medially. ?The medial gutter was free of loose bodies I then introduced the arthroscope into the medial compartment.? Within the medial compartment I then established my inferior medial working portal utilizing spinal needle outside in technique.? Once established I then visualized our articular cartilage of the medial compartment with a valgus stress.? Patient was found to have [id number] throughout the medial compartment.? Next I inspected the meniscus.? With an arthroscopic probe was utilized to visual? all aspects of the meniscus.? Meniscal root was found to be intact.? Meniscus was found to be torn with a small flap tear right of the posterior horn near the meniscal root. This did not violate the meniscal root and was probed and found to be tact. I subsequently utilized an arthroscopic shaver and thermal wand to perform a partial medial meniscectomy to stable meniscal tissue. ? Next, I then performed a synovectomy of the medial compartment.? This completed medial compartment work. Next a introduced the arthroscope to the intercondylar notch.? PCL and ACL were intact. patient had significant thickening of the infrapatellar fat pad spanning into the medial and lateral compartments.? I then performed an extensive synovectomy with the arthroscopic shaver of the patellofemoral medial and lateral compartments as well as the intercondylar notch. Next I introduced the arthroscope into the lateral compartment the lateral compartment was found to have grade 1 chondromalacia.? Lateral meniscus was was also found to have a small flap tear of the posterior horn of the lateral meniscus. I utilized an arthroscopic shaver and a thermal wand to perform a partial lateral meniscectomy to stable meniscal tissue. There is grade I chondromalacia in this area no chondroplasty performed. I then subsequently completed my work in the lateral compartment with a synovectomy of the lateral compartment.? Next of the arthroscope was placed into the lateral gutter and this was free of loose bodies.? Finally I reintroduced the arthroscope into the patellofemoral compartment.? The patellofemoral was found to have grade 2 chondromalacia of the patellofemoral compartment.? I utilized a thermal wand and shaver to perform a patellofemoral chondroplasty as there was fraying of the undersurface of the patella as well as a fissure within the trochlear groove consistent with grade II chondromalacia this was taken to stable articular tissue. At this point I utilized arthroscopic shaver as well as thermal wand to perform extensive synovectomy of the patellofemoral compartment. This completed my work of the patellofemoral space.? I then switch my portal sites to the medial working portal.? Completed the rest of my synovectomy and the rest of my examination arthroscopy was normal. All fluid was suctioned from the joint.? ?All instruments were withdrawn.? Portal sites were closed with interrupted nylon suture.? portal sites were then covered with with Xeroform 4 x 4's ABD Curlex and Zi wrap.? Patient was then subsequently awakened from anesthesia and taken to PACU in stable condition. Disposition: Patient taken to PACU in stable condition recovering well.? Will receive appropriate discharge structure as well as pain medication postoperatively as well as? DVT prophylaxis.we will have patient follow-up with us in the office in 2 weeks.? We will weightbearing as tolerated to the right lower extremity.? Patient understands and agrees with current plan.? All questions answered.
--- NOTE | 2024-06-14 08:20 | PM.PACU ---
PACU note Narrative: Patient is a 39-year-old male that just underwent a right knee diagnostic and surgical arthroscopy. Pt transferred to PACU in stable condition. Dressing is dry. pt is awake and alert. pt can wiggle toes and plantarflex and dorsiflex foot. pt able to perform straight leg raise, Femoral nerve intact. Distal pulses are palpable toes are warm and well-perfused. Cap refill is normal and under 2 seconds. Sensation to foot is intact. Pain is controlled. Exam: awake Disposition: discharged
[2024-06-14] MEDS: HYDROcodone-acetaminophen 5-325 mg Tablet 1 TAB PO (09:12)
--- NOTE | 2024-06-14 09:30 | ANE.PACU2 ---
Inpatient post-anesthesia follow up: Airway intact: Yes Vital signs: Temperature 98.1 F Pulse Rate 72 Respiratory Rate 16 Blood Pressure 128/70 Pulse Oximetry 96 Oxygen Delivery Me thod Room Air Oxygen Flow Rate 8 Fraction of Inspir ed Oxygen Hydration adequate: Yes Nausea and vomiting: No Pain level: 1 Mental status: Baseline
== END 2024-06-14 09:30 | disposition home or self-care (01) ==
PROVIDERS: Visit Provider Student in an Organized Health Care Education/Training Program
PROC: (CPT 29870; principal; 2024-06-14 07:00)
PROC: (CPT 29876; 2024-06-14 07:00)
PROC: (CPT 29876; 2024-06-14 07:00)
DX: S83.241A Other tear of medial meniscus, current injury, right knee, initial encounter (principal); S83.281A Other tear of lateral meniscus, current injury, right knee, initial encounter; X58.XXXA Exposure to other specified factors, initial encounter; M65.88 Other synovitis and tenosynovitis, other site; M22.41 Chondromalacia patellae, right knee; F17.200 Nicotine dependence, unspecified, uncomplicated
CPT/HCPCS: 29876; 29880; J0131; J0690; J1885; J2250; J2371; J2704; J3010; J7030

== ENCOUNTER → 2024-10-11 08:10 | Outpatient (BNVA) | payer MEDICAID, SELFPAY | PROVIDERS: Visit Provider Student in an Organized Health Care Education/Training Program | DX: Z98.890 Other specified postprocedural states (principal); S89.91XA Unspecified injury of right lower leg, initial encounter; M23.306 Other meniscus derangements, unspecified meniscus, right knee; X58.XXXA Exposure to other specified factors, initial encounter; Z46.89 Encounter for fitting and adjustment of other specified devices | CPT/HCPCS: 73560; 73565 ==

== ENCOUNTER 2024-10-24 15:58 | Outpatient (CLI) | payer MEDICAID, SELFPAY ==
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
== END 2024-10-24 15:59 | disposition home or self-care (01) ==
LOC: RAD 15:58
PROVIDERS: Visit Provider Student in an Organized Health Care Education/Training Program
DX: Z98.890 Other specified postprocedural states (principal); M23.306 Other meniscus derangements, unspecified meniscus, right knee; S83.411A Sprain of medial collateral ligament of right knee, initial encounter; X58.XXXA Exposure to other specified factors, initial encounter; R93.6 Abnormal findings on diagnostic imaging of limbs
CPT/HCPCS: 73721

== ENCOUNTER 2025-03-18 11:41 | Emergency (ER) | payer MEDICAID, SELFPAY ==
--- OUTSIDE RECORDS SUMMARY | 2014-06-18 06:05 | XMS_ITS | Continuity of Care Document ---
Author Organization [facility] Address [address] [place] [address] Phone Care Team Providers Care Copywriting Intern Name Role Phone Unavailable Unavailable Unavailable Procedures Procedure Date UA No Charge DOT Physical With UA Hair Collection Only Drug Screen; Collection Only Advance Directives Directive Yes / No Effective Date File Name No Information Encounters Encounter Description Practice Location Reason(s) For Visit Diagnoses Date Provider Providers Copied on Encounter DOT Physical With UA [facility], [address], [place], [place], [id number], tel:[phone] [facility] physical (chief complaint) No Information No Information Hair Collection Only [facility], [address], [place], [place], [id number], tel:[phone] [facility] Drug Screen (chief complaint) EXAM-MEDICOLE GAL REASONS No Information Family History Family Member Type Diagnosis Age At Onset Problem (finding) Family history of malignant neoplasm of lung Payers Payer name Insurance type Covered republican ID Authoriza tion(s) No Information Social History Type Description Quantity Date Captured Comments Alcohol Use Details Unknown Caffeine Use Details Unknown Tobacco Use Status No Information Smoking Status No Information Smoking Tobacco Use Details Cigarette: No Details Available Cigarette: No Details Available Sex Male Vital Signs Date / Time: Height Weight BMI Pulse Rate Blood Pressure Temperature Respiratory Rate Body Surface Area Head Circumference Head Circ. Percentile Wt./[place]. Percentile BMI percentile Pulse Ox Inhaled Ox 11:36 AM 70.00 in 115.666 kg (255.00 lbs) 36.5 9 kg/m eter (2) 60 /min 116/66 mm[Hg] 98.40 F 16 /min 2.39 meter(2) 99 % Chief Complaint And Reason For Visit From encounter dated '06/18/2014 11:05'. physical (chief complaint) Reason For Referral Reason For Referral No Information History Of Present Illness Encounter Date Complaint History Of Prese nt Illness No Information Functional Status Date Functional Assessmen t No Information Instructions Date Instruction Additional Infor mation No Information Assessments Type Assessment Date No Information Patient Care Teams Name Effective Dates (start - stop) Status Members No Information
[2025-03-18 11:46] VITALS: BP 162/118; PULSE 113; RESP 24; TEMP 36.7; O2SAT 96; BMI 47.2
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
--- OUTSIDE RECORDS SUMMARY | 2025-03-18 11:47 | XMS_ITS | Clinical Summary ---
Author Organization [facility] Address [address] 

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
--- OUTSIDE RECORDS SUMMARY | 2025-03-18 11:47 | XMS_ITS | Patient Health Record ---
Author Organization [facility] Address [address] [place] [address] Care Team Providers Care Seamer Name Role Phone Yazan Crzu Unavailable [phone] Reason For Referral No Information Medications Medication SIG (Take, Route, Frequency, Duration) Notes Start Date End Date Status Methocarbamol 750 MG Tablet TAKE 1 TABLE T BY MOUTH EVERY 8 HOURS; Duration: 30 Active Ibuprofen 800 MG Tablet 1 tablet with fo od or milk as needed Orally every 8 hrs Active tiZANidine HCl 4 MG Tablet 1 tablet as n eeded Orally Three times a day Active Social History Tobacco Use: Social History Observation Description Date Details (start date - stop date) Current Smoker NA - NA Social History Drugs/Alcohol: Social Info Question Answer Notes Alcohol Screen (Audit-C) Did you have a drink containing alcohol in the past year? No Points 0 Interpretation Negative Drugs Have you used drugs other than those for medical reasons in the past 12 months? Yes Tobacco Use: Social Info Question Answer Notes xTobacco Use/Smoking Are you a current smoker How often do you smoke cigarettes? every day Problems Problem Type SNOMED Code ICD Code Onset Dates Problem Status W/U Status Risk Notes Problem Chronic pain (23323331) Other chronic pain (G89.29) Active confirmed Problem Spinal stenosis of lumbar region (31648241) Spinal stenosis of lumbar region without neurogenic claudication (M48.061) Active confirmed Problem Arthropathy of lumbar facet joint (754443664) Lumbar facet arthropathy (M12.88) Active confirmed Problem Myofascial pain syndrome of lumbar spine (disorder) (73947617700538 0) Acute myofascial strain of lumbar region, initial encounter (S39.012A) Active confirmed Problem Arthropathy of lumbar facet joint (456075318) Lumbar facet arthropathy (M47.816) Active confirmed Problem Low back pain (735182947) Low back pain, unspecified (M54.50) Active confirmed Plan Of Treatment No Information Insurance Providers Payer Name Payer Address Payer Phone Subscriber Number Group Number Insured Name Patient Relationship to Insured Coverage Start Date Coverage End Date Maribell Gallardo - Work Comp [address] [place] [id number] Noah Kidd Self - patient is the insured Medical (General) History Medical History History ICD Code Chicken Pox Back Trouble Hemmorhoids Surgical History Surgery Date(Month/Year) appendix gall bladder 2020
--- OUTSIDE RECORDS SUMMARY | 2025-03-18 11:47 | XMS_ITS | Encounter Summary ---
Author Organization [email or web address] [facility] Address [address] [place] [address] Care Team Providers Care Pediatric Audiologist Name Role Phone Unavailable Primary Care Provider Unavailabl e Encounter Details Date Type Department Care Team (Latest Contact Info) Description 03/13/1999 Outpatient Historical [facility] (Excluded Provider) Saman Diggs, DPM Sprain of ankle, unspecified site (Primary Dx) Social History Tobacco Use Types Packs/Day Years Used Date Smoking Tobacco: Never Assessed Sex and Gender Information Value Date Recorded Sex Assigned at Not on file 

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
--- OUTSIDE RECORDS SUMMARY | 2025-03-18 11:47 | XMS_ITS | Encounter Summary ---
Author Organization [facility] Address [address] [place] [address] Care Team Providers Care Hospital Cook Name Role Phone Unavailable Primary Care Provider Unavailabl e Encounter Details Date Type Department Care Team (Late st Contact Info) Description 03/07/2003 Outpatient Historical [facility] Wound Care [address] 

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
--- OUTSIDE RECORDS SUMMARY | 2025-03-18 11:47 | XMS_ITS | Encounter Summary ---
Author Organization [facility] Address [address] [place] [address] Care Team Providers Care Silk Screener Name Role Phone Unavailable Primary Care Provider Unavailabl e Encounter Details Date Type Department Care Team (Late st Contact Info) Description 02/04/2003 Outpatient Historical [facility] Wound Care [address] 

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
--- NOTE | 2025-03-18 12:05 | ED_ITS ---
HPI - Wound/Laceration General: Chief Complaint: Wound/Laceration Stated Complaint: r 4th toe detached Time Seen by Provider: 03/18/25 11:48 Source: patient Mode of arrival: ambulatory Limitations: no limitations History of Present Illness: Patient is a 40-year-old male who presents the emergency department complaining of injury to his right third toe. He states he dropped a big handle on the toe, and was concerned that it was detached or broken. Tetanus is not up-to-date. Noted to be ambulatory into the emergency room with a limp. Complaining of mild to moderate pain, states that is difficult to tell due to his history of neuropathy. No active bleeding at this time. Onset (ago): minute(s) Extremity Location: Right: foot (Third toe) Place: home Patient tetanus UTD: No Context: accidental Associated symptoms: Denies chills, fever(s), nausea or vomiting Treatments prior to arrival: bandage Related Data Previous Rx's ?Medication ?Instructions ?Recorded ibuprofen 800 mg tablet See Rx Instructions .Route 0 07/06/24 .COMPLEX #60 tabs Hinged Knee Brace #1 ea 10/11/24 cephalexin 500 mg capsule 500 mg PO Q6H 5 days #20 cap s 03/18/25 hydrocodone 7.5 mg-acetaminophen 1 tab PO Q8H PRN pain #15 tabs 03/18/25 325 mg tablet Allergies Allergy/AdvReac Type Severity Reaction Status Date / Time No Known Allergies Allergy Verified 03/18/25 11:49 Review of Systems General: Reports: 10 or more systems reviewed and unremarkable except in HPI and below Const: Denies: fever(s) or chills Card: Denies: chest pain Resp: Denies: dyspnea GI: Denies: abdominal pain, nausea, vomiting or diarrhea Musc: Denies: extremity pain or joint pain Skin/Breast: Reports: new lesions (Laceration to right third toe); Denies: rash, skin pain or skin tenderness Neuro: Denies: headache(s) PFS ED PFSH: Medical History Recurrent biliary colic Surgical History History of appendectomy Social History (Reviewed 03/18/25 @ 17:50 by MARIAM Fitzpatrick Smoking and tobacco/nicotine status: current every day tobacco/nicotine user Alcohol intake: current Alcohol intake frequency: holidays/special occasions only Caregiver/support person: Yes Lives independently: Yes Household members: spouse Marital status: Physical Exam Const: COMMON NORMALS: no acute distress, average body habitus, patient oriented x3, no limitations, healthy appearing, alert and well nourished HENMT: COMMON NORMALS: normocephalic and atraumatic HEAD & SCALP: normocephalic and atraumatic Neck/C-Spine: COMMON NORMALS: full ROM, no lymphadenopathy, supple and no meningeal signs Resp: COMMON NORMALS: normal respiratory effort, No use of accessory muscles and clear to auscultation bilaterally AUSCULTATION: clear to auscultation bilaterally Cardio: COMMON NORMALS: regular rate and regular rhythm RATE: regular rate RHYTHM: regular rhythm Extremity: COMMON NORMALS: full ROM and capillary refill normal Neuro: COMMON NORMALS: patient oriented x3, moves all extremities, no focal motor deficits and no sensory deficits noted SENSORIUM/ORIENTATION: Yes alert MENINGEAL SIGNS: Yes no meningeal signs OTHER: Able to move the toe with flexion and extension Skin: COMMON NORMALS: turgor normal NARRATIVE SKIN EXAM: 2 to 3 cm laceration overlying dorsum of the right third toe with no active bleeding. No foreign body obvious. GENERAL SKIN EXAM: turgor normal Procedures Laceration Laceration 1: Site: lower extremity Side (If applicable): right (3rd toe) Size (cm): 3 Description: linear and clean Depth: simple, single layer and involves muscle layer Pre-repair: wound explored and irrigated extensively Skin layer closed with: nylon Size (cm): 5-0 Number of sutures: 5 Technique: simple, interrupted Nerve Block Nerve Block 1: Local Anesthetic: lidocaine 2% Amount of anesthesia used (mL): 10 Side: right Nerve Blocks: digital (right 3rd toe) Procedure Successful: Yes Patient Tolerated Procedure: well Complications: none Course Vital Signs: Vital signs: Vital Signs Temperature 98.1 F 03/18/25 11:46 Pulse Rate 113 H 03/18/25 11:46 Respiratory Rate 24 H 03/18/25 11:46 Blood Pressure 162/118 03/18/25 11:46 Pulse Oximetry 96 03/18/25 11:46 Oxygen Delivery Me thod Room Air 03/18/25 11:46 MDM - Wound/Laceration Medical Decision Making Patient presents after dropping a large camper handle on his right third toe. This caused large laceration with no active bleeding on arrival, he retains ability to move the toe however the x-rays demonstrating a complex comminuted fracture. For this the wound was thoroughly irrigated with 400 to 500 cc of normal saline. He is given Ancef through an IV, and tetanus is updated. The skin layer is closed, see the procedure note, this was after digital block. He will be referred to podiatry for further evaluation, is made nonweightbearing with crutches after sterile dressing placed and given postoperative shoe. He is given strict return precautions to the ED, pain medications and antibiotics are sent to the pharmacy for further outpatient management. He endorsed understanding to the return precautions. Lab Data Radiology Impressions Foot X-Ray 03/18/25 12:00 IMPRESSION: Complex comminuted fracture involving the middle phalanx of the right 3rd toe as noted above. All radiology interpretation(s) finalized by discharge Discharge Plan Discharge Patient Disposition: Home Clinical Impression: Open fracture of phalanx of right third toe Qualifiers: Encounter type: initial encounter Qualified Code(s): S92.501B - Displaced unspecified fracture of right lesser toe(s), initial encounter for open fracture Condition: Stable Prescriptions: New cephalexin 500 mg capsule 500 mg PO Q6H 5 Days Qty: 20 0RF hydrocodone-acetaminophen 7.5-325 mg tablet 1 tab PO Q8H PRN (Reason: pain) Qty: 15 0RF No Action ibuprofen 800 mg tablet See Rx Instructions .ROUTE .COMPLEX Qty: 60 2RF Dose Instruction: TAKE 1 TABLET BY MOUTH EVERY 8 HOURS NEEDED FOR PAIN Rx Instructions: TAKE 1 TABLET BY MOUTH EVERY 8 HOURS NEEDED FOR PAIN (DME) Hinged Knee Brace See Rx Instructions .Route .MEDSUPPLY Qty: 1 0RF Rx Instructions: As directed: Length Of Need 99 Discharge Orders: Discharge ED (Routine); Ordered 03/18/25 Ordered By: Stephon Kolb Patient Instructions: Opioid Safety, Pain Management, Patient Portal & Mj Instructions Activity Restrictions/Additional Instructions: Open Toe Fracture Discharge Diagnosis: Open fracture, right third toe, status post irrigation, debridement, and suture closure in the emergency department. Immobilization and Weightbearing: - The patient has been placed in a postoperative shoe and provided crutches for strict non-weightbearing of the affected foot until podiatry follow-up. This approach is consistent with best practices for open toe fractures to minimize further injury and reduce infection risk.[1] https://pubmed.ncbi.nlm.nih.gov/30371018 [2] https://pubmed.ncbi.nlm.nih.gov/53450383 [3] https://pubmed.n i.nlm.nih.gov/88450511 Antibiotic Therapy: - Intravenous cefazolin was administered in the emergency department per guidelines for open fractures (Gustilo type I/II).[4] https://www.[employer]/mkbnhqtw/ortho_guidelines.pdf [5] https://doi.org/10.5435/MPOQC-R-61-67274 - Discharge prescription: Cephalexin 500 mg orally every 6 hours for 5 days. Although consensus guidelines from the [place] [employer] and international societies recommend a minimum of 24 hours and generally not exceeding 72 hours of antibiotic prophylaxis post-procedure, short courses up to 5 days may be considered in select cases with moderate contamination or delayed wound closure, as supported by recent practice patterns. Monitor for signs of antibiotic-associated adverse effects (rash, diarrhea, C. difficile).[6] https://pubmed.ncbi.nlm.nih.gov/97269040 [7] https://pubmed.ncbi.nlm.nih.gov/52324688 [8] https://pubmed.ncbi.nlm.nih.gov/3 7087775 Tetanus Prophylaxis: - Tetanus immunization updated today, per [place] [employer] recommendations for open fractures.[4] https://www.[employer]/media/mkbnhqtw/ortho_guidelines.pdf Pain Management: - Hydrocodone-acetaminophen ([place]) prescribed for pain control. Advise use only as needed, not exceeding the prescribed dose. Alternative Medicine Practitioner regarding opioid side effects and safe storage/disposal. Wound Care: - Keep the wound clean and dry. Do not remove the dressing unless instructed by podiatry or if it becomes saturated or soiled. - Inspect the wound daily for signs of infection: increasing redness, swelling, warmth, purulent drainage, or foul odor. - Elevate the foot above heart level as much as possible to reduce swelling. Home Management: - Continue non-weightbearing with crutches and postoperative shoe. - Take cephalexin as prescribed; complete the full course unless adverse reactions occur. - Use hydrocodone-acetaminophen for breakthrough pain; consider acetaminophen alone for mild pain. - Ice may be applied to the area (over the dressing) for 15?20 minutes every 2?3 hours to reduce swelling, avoiding direct contact with the skin. Follow-Up: - Follow up with podiatry as scheduled for wound evaluation, suture removal, and assessment of fracture healing and alignment. Strict Return Precautions: - Return to the emergency department immediately for any of the following: - Fever >38.5?C (101.3?F) - Increasing pain, swelling, redness, or warmth at the wound site - Purulent or foul-smelling drainage from the wound - Bleeding that does not stop with gentle pressure - Numbness, tingling, or loss of movement in the toes or foot - Signs of systemic illness (chills, confusion, vomiting) - Difficulty breathing or severe allergic reaction (rash, swelling of face/lips/tongue) - Inability to tolerate oral antibiotics due to vomiting or severe diarrhea Additional Considerations: - Advise against smoking and nicotine use, as these impair wound and bone healing. - Alternative Medicine Practitioner on fall prevention and safe use of crutches. Summary of Evidence: - Early administration of IV antibiotics and short-course oral antibiotics are effective in reducing infection risk in open fractures.[9] https://pubmed.ncbi.nlm.nih.gov/63695747 [6] https://pubmed.ncbi.nlm.nih.gov/71521159 [7] https://pubmed.ncbi.nlm.nih.gov/70629049 [4] https://www.[employer] g/media/mkbnhqtw/ortho_guidelines.pdf [5] https://doi.org/10.5435/NAACZ-K-13-29801 - Immobilization and non-weightbearing are standard for open toe fractures.[1] https://pubmed.ncbi.nlm.nih.gov/13855923 [2] https://pubmed.ncbi.nlm.nih.gov/04532585 [3] https://pubmed.ncbi.nlm.nih.gov/19032441 - Tetanus prophylaxis is indicated for all open fractures.[4] https://www.[facility] center[facility]/media/mkbnhqtw/ortho_guidelines.pdf - Close monitoring for infection and prompt return for concerning symptoms are essential to prevent complications.[9] https://pubmed.ncbi.nlm.nih.gov/82206199 [7] https://pubmed.ncbi.nlm.nih.gov/99376509 [10] https://pubmed.ncbi.nlm.nih.gov/86372233 [5] https://doi.org/10.5435/GRDHM-G-51-68819 References * Diagnosis and Management of Common Foot Fractures https://pubmed.ncbi.nlm.nih.gov/10930709 . Carole Fernandez, Chey NUGENT, Chano Marshall. [place] Family Physician. 2016;93(3):183-91. * Common Foot Fractures https://pubmed.ncbi.nlm.nih.gov/74775112 . Alessandro S, Mario Alberto E, Barbra ML. [place] Family Physician. 202;109(2):119-129. * Evaluation and Management of Toe Fractures https://pubmed.ncbi.nlm.nih.gov/62739865 . Sangeeta RL, Ilia S. [place] Family Physician. 2003;68(12):2413-8. * Best Practices In The Management Of Orthopaedic Trauma https://www.[facility] center[facility]/media/mkbnhqtw/ortho_guidelines.pdf . Osito Garcia MD FACS, Damion Leger MD PhD FACS, Meenakshi England MD [facility] FACS, et al. [place] [employer] (2015). * AAOS Clinical Practice Guideline Summary: Prevention of Surgical Site Infection After Major Extremity Trauma https://doi.org/10.5435/EQTFI-H-25-77679 . Cesar Herrera. The Journal of the [place] Academy of Orthopaedic Surgeons. 2022;31(1):e1-e8. doi:10.5435/DHVAV-N-19-43167. * Antibiotic Prophylaxis in Trauma: Global [place] for Infection in Surgery, Surgical Infection Society Europe, World Surgical Infection Society, [place] Association for the Surgery of Trauma, and World Society of Emergency Surgery Guidelines https://pubmed.ncbi.nlm.nih.gov/44906914 . Jac F, Mayank Vargas, Nhan R, et al. The Journal of Trauma and Acute Care Surgery. 2023;96(4):674-682. doi:10.1097/TA.8670994732209270. * Acute Management of Open Fractures: An Evidence-Based Review https://pubmed.ncbi.nlm.nih.gov/82997416 . Elza MJ, Leonila MP. Orthopedics. 2015;38(11):q6373-84. doi:10.3928/40056621-07473202-79. * The Open-Fracture Patient Evaluation Nationwide (OPEN) Study: The Management of Open Fracture Care in the [place] https://pubmed.ncbi.nlm.nih.gov/43290752 . Анна BURNS, Jeny JN, Bravo R, et al. The Bone & Joint Journal. 2021;104-B(9):9231-3668. doi:10.1302/0301-620X.104B9.PNQ-2873-9510.R1. * Contemporary Management of Open Extremity Fractures: What You Need to Know https://pubmed.ncbi.nlm.nih.gov/38715928 . Mary PF, Akhil AM. The Journal of Trauma and Acute Care Surgery. 2023;97(1):11-22. doi:10.1097/TA.6395550346800346. * Prevention of Infection in Open Fractures: Where Are the Pendulums Now? https://pubmed.ncbi.nlm.nih.gov/31983767 . Josafat M, Claude D, Alt V. Injury. 2020;51 Suppl 2:S57-S63. doi:10.1016/j.injury.2019.10.074. Stand Alone Forms: Work/School Release Print Language: Occitan Coding Level of Care Code ED Die Forger for [facility] [place]
[2025-03-18] MEDS: tetanus-dipt-pertussis 0.5 mL SDV IM (12:13)
[2025-03-18] MEDS: lidocaine 2% INJ 20 mL INJECTION (13:19)
[2025-03-18] MEDS: ceFAZolin 1,000 mg SDV 1000 MG IVP (14:59)
--- NOTE | 2025-03-19 08:14 | DCPLANNER ---
messaged podiatry for er f/u
== END 2025-03-18 15:00 | disposition home or self-care (01) ==
PROVIDERS: Emergency Provider Physician Assistant
DX: S92.501B Displaced unspecified fracture of right lesser toe(s), initial encounter for open fracture (principal); Z72.0 Tobacco use; W20.8XXA Other cause of strike by thrown, projected or falling object, initial encounter
CPT/HCPCS: 12042; 73630; 90471; 90715; 96374; 99284; J0690; J9999

== ENCOUNTER → 2025-03-26 10:34 | Outpatient (BNVA) | payer MEDICAID, SELFPAY | PROVIDERS: Visit Provider Orthopaedic Surgery | DX: S92.524D Nondisplaced fracture of middle phalanx of right lesser toe(s), subsequent encounter for fracture with routine healing (principal); X58.XXXD Exposure to other specified factors, subsequent encounter | CPT/HCPCS: 73630 ==

== ENCOUNTER → 2025-04-02 14:01 | Outpatient (BNVA) | payer MEDICAID, SELFPAY | PROVIDERS: Visit Provider Orthopaedic Surgery | DX: S92.524D Nondisplaced fracture of middle phalanx of right lesser toe(s), subsequent encounter for fracture with routine healing (principal); X58.XXXD Exposure to other specified factors, subsequent encounter | CPT/HCPCS: 73630 ==

== ENCOUNTER → 2025-04-23 09:30 | Outpatient (BNVA) | payer MEDICAID, SELFPAY | PROVIDERS: Visit Provider Orthopaedic Surgery | DX: S92.524D Nondisplaced fracture of middle phalanx of right lesser toe(s), subsequent encounter for fracture with routine healing (principal); X58.XXXD Exposure to other specified factors, subsequent encounter | CPT/HCPCS: 73630 ==

== ENCOUNTER → 2025-05-14 08:46 | Outpatient (BNVA) | payer MEDICAID, SELFPAY | PROVIDERS: Visit Provider Orthopaedic Surgery | DX: S92.524D Nondisplaced fracture of middle phalanx of right lesser toe(s), subsequent encounter for fracture with routine healing (principal); X58.XXXD Exposure to other specified factors, subsequent encounter | CPT/HCPCS: 73630 ==